=== PATIENT | female | born 1940 | race Caucasian/White ===

== ENCOUNTER → 2017-12-19 | Outpatient (CLI) | payer MEDICARE, BC ==
[~2017-12-19] MED LIST: ACE325 PO; ACYC-50 AD; ACYC-58 PO; ADV100/50 INH; ADV250/50 INH; ALP5 PO; AMI10 PO; AML5; AML5 PO; ASPI-1471 PO; ASPI81TA15 PO; ATOR10TA65 PO; ATOR40TA69 PO; AZIT-17 PO; BENZ200C15 PO; CALC-649 PO; CALC-864 PO; CARB1DRO14 OP; CARB25DR2 OP; CELE-1 PO; CYCL1DRO6 OD; CYCL1DRO6 OP; CYCOD OP; DIPH0.5D12 IM; DYA PO; ESC10 PO; EST; EST3 PO; ESTR-33 PO; ESTR0.5T16 PO; ESTR1VAG6 VG; ESTR2TAB26 PO; FIB FT; FLUT1DIS28 IH; GLUCOSAMINE 1,1 EACH PO; HYDR-2966 PO; HYDR115S2 PO; IBU200 PO; IBUP100T51 PO; IPRN ENA; LAN30PT PO; LANS15CA32 PO; LEV100 PO; LEV15R INH; LEVA15HF IH; LEVO-3 PO; LEVO100T95 PO; LIS20 PO; METO25TA23 PO; METO50TA PO; MU-V1TAB9 PO; MULT-1 PO; PAN40 PO; PANT40TA65 PO; PNEU0.5D3 IM; PRE50 PO; PRED20TA6 PO; PREG100C44 PO; PRO25 PO; RANI-324 PO; TRAM100T22 PO; TRIA-20 PO; TRIO80T TOP; XOPENEX INH; ZOLP-350 PO; [UNRECOGNIZED DRUG - CODE] IVP; [UNRECOGNIZED DRUG - CODE] PO; [UNRECOGNIZED DRUG - OTHER]
== END ==
LOC: LAB 10:47
PROVIDERS: ATTEND Emergency Medicine
DX: I10 Essential (primary) hypertension (principal); E03.9 Hypothyroidism, unspecified
CPT/HCPCS: 36415; 82310; 82374; 82435; 82565; 82947; 83735; 84132; 84295; 84443; 84520

== ENCOUNTER → 2018-01-02 | Outpatient (CLI) | payer MEDICARE, BC ==
--- NOTE | 2018-01-02 13:40 | RADIOLOGY IMAGING REPORT ---
FACILITY: [facility] PATIENT NAME: Kari Humphries : 1940 MR: [id number] V: [id number] EXAM DATE: ORDERING PHYSICIAN: JOEY HERRERA TECHNOLOGIST: Location: [facility] Patient: Kari Humphries : 1940 Visit/Account:[id number] Date of Sevice: 01/02/2018 DEXA Scan Clinical history: Postmenopausal estrogen deficiency. Comparison: DEXA scan from 12/24/2012. LUMBAR SPINE: The bone mineral density (BMD) measured from L1-L4 correlates with a Z-score of 4.3 and a T-score of 2.9 which is Normal as defined by the World Health Organization. The corresponding risk of fracture in the lumbar spine is Not increased compared with a young adult reference population. This value benson s increased by 16 % since the prior study. More than 5% change is considered significant. HIP: Bone mineral density (BMD) measured in the LEFT total hip region correlates with a Z-score 3.1 and a T-score of 1.4 which is normal as defined by the World Health Organization. The corresponding risk of fracture in the hip is Not i ncreased compared to a young adult reference population. This value has decrease by 2.7 % since the p rior study. More than 5% change is considered significant. T score left femoral neck 0.8 Bone mineral density (BMD) measured in the Femoral Neck region measures 1.143 g/cm?. IMPRESSION: 1. Lumbar spine: Normal. There has been 16% increase in the bone mineral density since the previous exam. 2. Left Total Hip: Normal. There has been 2.7% decrease in the bone mineral density since the previ ous exam. 3. Femoral Neck: Bone Mineral Density is 1.143 g/cm? The next DEXA scan of this patient should include the following sites: L1-L4 and the left hip. FRAX? WHO Fracture Risk Assessment Tool link: <http://www.shef.ac.uk/FRAX/tool.jsp?locationValue=9> PLEASE NOTE: 1) The World Health Organization defines low BMD as follows: T-score Normal > -1 Osteopenia < -1 and > -2.5 Osteoporosis < -2.5 without fractures Established osteoporosis < -2.5 with fractures 2) In general, you may wish to consider: Diagnosis Treatment Follow-up DEXA Normal BMD Prevention 2-3 years Osteopenia Prevention/therapy 1-2 years Osteoporosis Therapy Yearly 3) Fracture risk estimated from the T-score is more accurate for vertebral fractures (often spontane ous) than for hip fractures. Report Dictated By: Amy Reyna MD at 01/02/2018 1:34 PM Report E-Signed By: Amy Reyna MD at 01/02/2018 1:35 PM CESARN:MALISSA
--- NOTE | 2018-01-03 10:24 | RADIOLOGY IMAGING REPORT ---
FACILITY: [facility] PATIENT NAME: ORAL PARMAR : [id number] MR: [id number] V: [id number] EXAM DATE: ORDERING PHYSICIAN: JOEY HERRERA TECHNOLOGIST: Jeanne Urbina PROCEDURE:BILATERAL DIGITAL SCREENING MAMMOGRAM WITH CAD ASSISTED INTERPRETATION & 3D TOMOSYNTHESIS COMPARISON:Prior mammograms 12/01/15, 06/23/14, 05/05/13, 02/11/12, 02/07/11 INDICATIONS:Screening FINDINGS: Dense heterogeneous fibroglandular tissue is seen throughout the breasts. Most of the parenchymal pattern has remained stable allowing for difference in mammographic technique & patient positioning. Just infer to the mid nipple line Zone 2 on the Left MLO view however there is a focal area of increased density for which spot compression view is recommended. DIAGNOSTIC CATEGORY 0--INCOMPLETE: NEED ADDITIONAL IMAGING EVALUATION. RECOMMENDATIONS: ADDITIONAL MAMMOGRAPHIC VIEWS REQUIRED: LEFT BREAST. IMPRESSION: BIRADS 0: Incomplete Additional views Left breast recommended as described. Dictated by: Amy Reyna M.D. on 01/02/2018 at 16:27 Transcribed by: MIRANDA on 01/03/2018 at 8:00 Approved by: Amy Reyna M.D. on 01/03/2018 at 10:23 [facility]
== END ==
LOC: MAMO 01:06
PROVIDERS: ATTEND Emergency Medicine
DX: Z13.820 Encounter for screening for osteoporosis (principal); Z12.31 Encounter for screening mammogram for malignant neoplasm of breast; R92.8 Other abnormal and inconclusive findings on diagnostic imaging of breast; Z78.0 Asymptomatic menopausal state
CPT/HCPCS: 77063; 77067; 77080

== ENCOUNTER → 2018-01-07 | Outpatient (CLI) | payer MEDICARE, BC ==
--- NOTE | 2018-01-07 16:42 | RADIOLOGY IMAGING REPORT ---
FACILITY: [facility] - [place] [place] PATIENT NAME: ORAL PARMAR : [id number] MR: [id number] V: [id number] EXAM DATE: ORDERING PHYSICIAN: JOEY HERRERA TECHNOLOGIST: Julia Higuera PROCEDURE:LEFT DIGITAL DIAGNOSTIC MAMMOGRAM COMPARISON:01/02/2018, 12/01/2015 & 06/23/2014 INDICATIONS:FURTHER EVAL TECHNIQUE: Left full ML 2D & tomographic views & Left MLO spot compression 2D & 3D tomographic images were obtained. FINDINGS: Additional imaging of the Left breast demonstrates that the asymmetry previously identified in the central Left breast on the MLO view does not persist & likely represents overlapping normal fibroglandular tissue. There is no dominant mass or suspicious microcalcifications on the Left. Scattered microcalcifications in the Left breast appear to be stable. DIAGNOSTIC CATEGORY 2--BENIGN FINDING. RECOMMENDATIONS: ROUTINE MAMMOGRAM AND CLINICAL EVALUATION. IMPRESSION: BIRADS 2: Benign finding. Recommend the patient resume screening mammography in 1 yr. Dictated by: Gaston Zaidi M.D. on 01/07/2018 at 13:55 Transcribed by: ISAURO on 01/07/2018 at 14:08 Approved by: Gaston Zaidi M.D. on 01/07/2018 at 16:40 [facility]
== END ==
LOC: MAMO 02:13
PROVIDERS: ATTEND Emergency Medicine
DX: R92.2 Inconclusive mammogram (principal)
CPT/HCPCS: 77065

== ENCOUNTER 2018-03-10 08:15 | Outpatient (RCR) | payer MEDICARE, BC ==
--- NOTE | 2018-02-14 15:43 | PT INITIAL EVALUATION ---
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 She reports that the pain in her B LE's (knees to feet) has gotten worse the last 5 months. She reports that her B LE's feel like burning and swollen type pain, but she states that she does not feel like they are swollen. She reports that standing and walking makes her B LE's worse. She states that sitting, sleeping, bending, and lying make her B LE's feel better. She denies any night pain, bladder changes, gait changes, recent surgeries, or any recent accidents. She reports that it feels better when she is staying still and worse as the day progresses. She reports that when she sits with a better posture that her pain is worse. She denies any numbness and tingling or feeling like she has lost any strength in her B LE's. Pain location is B knees to feet, L3-5 spinous process and described as feels like burning and swollen feeling. Pain scale is 1 on a ten point pain scale. REHAB PROBLEM LIST: Increased Pain Decreased ROM Decreased Endurance Decreased Function Decreased ADL's PREVIOUS MEDICAL HISTORY: See EMR OCCUPATION: Retired OBJECTIVE: Posture: She demonstrated minimal forward head, minimal B rounded shoulders, minimal thoracic kyphosis, and decreased lumbar lordosis. ROM: Trunk AROM: flexion: NIL with muscular end feel. extension: minimal restriction with painful end feel. R/L sidegliding: minimal restriction with painful end feel. Palpation: TTP: B knees to feet, L3-5 spinous process Sensation: Intact from L2-S2 Special Tests: Repeated extension: pain during the test and worse following the test with reduced trunk AROM. Repeated flexion: stretch during the test and better following the test with improved trunk AROM. Mobility: Independent ASSESSMENT: Kari will benefit from skilled physical therapy addressing the listed impairments to improve function and QOL. Based on examination, her provisional classification appears to be an anterior derangement that responded well to flexion based principles. She is independent in her specific exercise. Short Term Goals 2 weeks: Pt will demonstrate centralized low back pain to improve function and QOL. 4 weeks: Pt will demonstrate abolished low back pain along with abolish radiating pain to improve function and QOL. 6 weeks: Pt will demonstrate abolished low back pain, return to prior level of function, and independent on her education to prevent reoccurrences in the future. Patient's Goals reduce B leg pain PLAN: Patient to be seen for Manual Therapy/STM/MET Strengthening/condition Range of Motion Spinal Stabilization Work Hardening/Cond Stretching Neuromuscular Re-ed Closed Chain Program Posture/Body mechanics Home Exercise Program Therapeutic Activities 2-3x/week for 6 Weeks If you have any questions, comments, or concerns about this report or plan, please contact me at . Thank you, Andrey Smith, PT, DPT MTDD
[~2018-03-10 08:15] MED LIST changes: -RANI-324 PO; +RANI-366 PO
--- NOTE | 2018-03-10 10:49 | PT PLAN OF CARE ---
Physician: Horacio House MD Patient is being seen: 1-2x/week Therapist: Andrey Smith, PT, DPT Medical Diagnosis: B Lower leg pain, likely neurological claudication from lumbar spine Treatment Diagnosis: same Date of Onset: 02/14/17 Date of Initial Evaluation: 02/14/18 Date patient was last seen: 03/10/18 Number of treatments: 6 Number of cancellations/No shows: 1 INTERVENTIONS: Manual Therapy/STM/MET Strengthening/condition Range of Motion Spinal Stabilization Work Hardening/Cond Stretching Neuromuscular Re-ed Closed Chain Program Posture/Body mechanics Home Exercise Program Therapeutic Activities GOALS: 2 weeks: Pt will demonstrate centralized low back pain to improve function and QOL. MET 4 weeks: Pt will demonstrate abolished low back pain along with abolish radiating pain to improve function and QOL. MET 6 weeks: Pt will demonstrate abolished low back pain, return to prior level of function, and independent on her education to prevent reoccurrences in the future. MET PATIENT'S GOAL: reduce B leg pain Not Met: unchanged Status of Patient's Goals: Met Patient Compliance: Good Prognosis: Good Reasons for continuing therapy: This is a discharge note for Kari Humphries. She reports that she is doing well. She reports that the back pain has resolved and denies any pain in her back during the last weekend. She reports that she continues to have B leg pain below the knees that has not gotten better or worse and continues to stay the same and continues to get worse with standing and better (or more tolerable) with compression. She demonstrated abolished low back pain and independence with her home exercise program moving forward. We performed an KASANDRA today and she was within the normal limits at 1.17 or 1.2. She is closer to the non-compressible arteries than PAD. Furthermore, it appears that her low back pain was not radiating down into her B LE's as her low back pain resolved and she continues to have the same levels of pain. As a result of her meeting her goals; however, we did not accomplish anything with her B LE pain since it was not linked to her lumbar spine, we will refer her back for more testing and discharge her from PT. Posture: She demonstrated minimal forward head, minimal B rounded shoulders, minimal thoracic kyphosis, and decreased lumbar lordosis. ROM: Trunk AROM: flexion: NIL with muscular end feel. extension: NIL with muscular end feel. R/L sidegliding: NIL with muscular end feel. Palpation: No longer TTP. Special Tests: Repeated extension: pain during the test and worse following the test with reduced trunk AROM. Repeated flexion: stretch during the test and worse following the test with decreased trunk AROM. R sidegliding: pain during the test and better following the test with increased trunk AROM. L sidegliding : pain during the test and worse following the test with decreased trunk AROM. Mobility: Independent If you have any questions, please contact me at [phone]. Thank you, Andrey Smith, PT, DPT MTDD
== END 2018-03-10 18:00 | disposition home or self-care (01) ==
LOC: PT 08:15
PROVIDERS: ATTEND Orthopaedic Surgery
DX: M54.5 Low back pain (principal); M79.604 Pain in right leg; M79.605 Pain in left leg
CPT/HCPCS: 97162

== ENCOUNTER → 2018-04-20 | Outpatient (REF) | payer MEDICARE, BC | LOC: ZZSTITCHES 14:20 | PROVIDERS: ATTEND Physician Assistant | DX: M79.672 Pain in left foot (principal); R06.9 Unspecified abnormalities of breathing | CPT/HCPCS: 84550 ==

== ENCOUNTER 2018-05-07 13:00 | Outpatient (RCR) | payer MEDICARE, BC ==
--- NOTE | 2018-04-30 08:04 | PT INITIAL EVALUATION ---
MEDICAL DIAGNOSIS: L wrist pain and inflammation, tendinitis TREATMENT DIAGNOSIS: Same DATE OF ONSET: 03/21/18 SUBJECTIVE: Kari Humphries presents to PT for L wrist pain, tendinitis with twisting water out of wet dish towels. She slammed her L wrist into a wall at home during a fall (06/29/17) and feels this started her L wrist pain. Pain location is L dorsal wrist and EDC tendon at the dorsal metacarpals and described as ache. Pain scale is 4 on a ten point pain scale. Pain is worse with twisting wet towels, gripping and better with resting wrist splint. REHAB PROBLEM LIST: Increased Pain, Decreased ROM, Strength, Function PREVIOUS MEDICAL HISTORY: Cervical fusion with hardware removal, thoracic surgery, laminectomy, thyroid disorder, neuropathy. OCCUPATION: Retired, drives, independent in all ADL's, does light housework only. OBJECTIVE: ROM: A/PROM L wrist extension 40/40, flexion 40/40, UD 0/10, RD 22/ 25 degrees. PROM at 3/4 fist with wrist flexion acutely painful at the dorsal wrist. L Elbow AROM WNL. Strength: EDC 3+/5, pain limited, flexors 4/5, pain limited. Palpation: Painful dorsal wrist carpals with hypomobile joints, anterior proximal row. Crackling in the EDC tenosynovial sheaths compartment 4, painful. Special Tests: Negative grind test at [facility], piano santana. ASSESSMENT: Kari Humphries presents with L wrist tendinitis and mild OA, hypomobile wrist affecting twisting motion and wrist strength. She had pain 2/10 with PROM wrist flexion (3/4 fist) after manual therapy and is started on gentle HEP. Short Term Goals/Patient's Goals 4 weeks: Kari wrings out wet towels with L wrist pain 2/10. 6 weeks: Pain free ADL's with L wrist. PLAN: Patient to be seen for Manual Therapy, Strengthening/condition, Ice/Heat , Range of Motion, Ultrasound, Stretching, Electrical Stim, Home Exercise Program 2x/Week for 6 Weeks Thank you for this referral. If you have any questions, comments, or concerns about this report or plan, please contact me at . [facility]
--- NOTE | 2018-05-16 15:35 | PT PLAN OF CARE ---
Physician: Dr. Horacio House Patient is being seen: 2x/week Therapist: Jaylyn Ro, PT Medical Diagnosis: L wrist pain and inflammation, tendinitis Treatment Diagnosis: Same Date of Onset: 03/21/18 Date of Initial Evaluation: 04/29/18 Date patient was last seen: 05/07/18 Number of treatments: 4 Number of cancellations/No shows: 1 INTERVENTIONS: ROM/stretching, Manual Therapy, HEP, E-stim GOALS/PATIENT'S GOAL: Not met due to hospitalization: 4 weeks: Kari wrings out wet towels with L wrist pain 11/30. 6 weeks: Pain free ADL's with L wrist. Patient Compliance: Excellent Prognosis: Excellent Reasons for discontinuing therapy: S: Kari has been re-admitted for UTI and pain control after her lumbar fusions. The current plan is home health upon discharge. Due to this, I need to close outpatient PT. Posture: O: As of : ROM: AROM L wrist extension 45, flexion 50 degrees. PROM at 3 /4 fist with wrist flexion was less painful at the dorsal wrist. Strength: NT Palpation: Improved carpal mobility, not full. No crackling in the EDC tenosynovial sheaths compartment 4, painful. A/P: Kari Humphries was improving her wrist tendinitis. If she needs further PT when she's discharged from home health, I'd be happy to work with her. I'll close her outpatient PT case for now. Thank you. KALYAN
== END 2018-05-07 18:00 | disposition home or self-care (01) ==
LOC: PT 13:00
PROVIDERS: ATTEND Orthopaedic Surgery
DX: M25.532 Pain in left wrist (principal); M67.834 Other specified disorders of tendon, left wrist; X50.3XXA Overexertion from repetitive movements, initial encounter; M43.22 Fusion of spine, cervical region; E07.9 Disorder of thyroid, unspecified; G62.9 Polyneuropathy, unspecified
CPT/HCPCS: 97110; 97140; 97162; G0283

== ENCOUNTER → 2018-05-07 | Outpatient (CLI) | payer MEDICARE, BC ==
[~2018-05-07] MED LIST changes: +FLUT16SP19 NS; +OXYGENHOME INH
--- NOTE | 2018-05-07 12:46 | RADIOLOGY IMAGING REPORT ---
FACILITY: [facility] PATIENT NAME: Kari Humphries : 1940 MR: [id number] V: [id number] EXAM DATE: ORDERING PHYSICIAN: JOEY HERRERA TECHNOLOGIST: Location: [facility] Patient: Kari Humphries : 1940 Visit/Account:[id number] Date of Sevice: 05/07/2018 Chest 2 views: HISTORY: Asthma, preop. COMPARISON: 12/27/2013 FINDINGS: Frontal and lateral chest: Cardiomediastinal silhouette is within normal limits. There is minimal prominence of the perihilar markings but significantly decreased in conspicuity compared to [facility] prior study. There may be minimal scarring in the lung bases. There is no infiltrate or pleural effusion. No pneumothorax. Pulmonary vasculature is normal. Atherosclerotic changes are present in the aorta. Postsurgical changes are present in the lower cervical spine. Mild degenerative changes present in t thoracic spine. IMPRESSION: 1. Mild prominence of the perihilar markings, this may be indicative of the patient's asthma. There is improvement compared to the prior study. 2. Basilar scarring. 3. No evidence of acute cardiopulmonary abnormality. Report Dictated By: Kait Rodriguez MD at 05/07/2018 12:37 PM Report E-Signed By: Kait Rodriguez MD at 05/07/2018 12:42 PM WSN:[id number]
== END ==
LOC: RAD 11:22
PROVIDERS: ATTEND Emergency Medicine
DX: Z01.818 Encounter for other preprocedural examination (principal); J45.909 Unspecified asthma, uncomplicated; R91.8 Other nonspecific abnormal finding of lung field
CPT/HCPCS: 71046

== ENCOUNTER → 2018-05-11 | Outpatient (CLI) | payer MEDICARE, BC ==
[~2018-05-11] MED LIST changes: +DIA5 PO; +DOCU240C84 PO; +LOR5/325 PO
== END ==
LOC: LAB 09:10
PROVIDERS: ATTEND Anesthesiology
DX: Z02.9 Encounter for administrative examinations, unspecified (principal)

== ENCOUNTER 2018-05-12 00:20 | Inpatient (IN) | payer MEDICARE, BC ==
[2018-04-18 08:57] LABS: PLATELET COUNT, AUTOMATED 240 K/uL (150-450)
--- NOTE | 2018-04-18 09:09 | EKG ---
FACILITY: [facility] - [place] PATIENT NAME: ORAL PARMAR : [id number] MR: [id number] V: [id number] EXAM DATE: ORDERING PHYSICIAN: JOSE MANUEL URRUTIA TECHNOLOGIST: BRITTANIE Marcelino Reason : PRE-OP Blood Pressure : / mmHG Vent. Rate : 066 BPM Atrial Rate : 066 BPM P-R Int : 208 ms QRS Dur : 090 ms QT Int : 402 ms P-R-T Axes : 058 071 074 degrees QTc Int : 421 ms Sinus rhythm No acute appearing findings When compared with ECG of 15-JAN-2013 17:54, No significant change was found Confirmed by KRISTEN SOARES ([id number]) on 04/18/2018 4:18:32 PM Referred By: LINA Confirmed By:KRISTEN SOARES
[2018-05-12] VITALS (11 sets, daily range): BP systolic 117–165; BP diastolic 64–98
[~2018-05-12] VITALS: Ht 174 cm; Wt 74.6 kg
[~2018-05-12 00:20] MED LIST changes: -DIA5 PO; -DOCU240C84 PO; -LOR5/325 PO
[2018-05-12] MEDS ORDERED: SUGAMMADEX SOD 200 MG/2 ML SDV ONE (09:39)
[2018-05-12] MEDS ORDERED: PROPOFOL EMUL(*) 10MG/ML 20 ML 20 ML ONE (09:39)
[2018-05-12] MEDS ORDERED: DEXAMETHASONE SOD PHOS 10MG/ML ONE (09:39)
[2018-05-12] MEDS ORDERED: LIDOCAINE MPF 1% 5 ML VIAL ONE (09:39)
[2018-05-12] MEDS ORDERED: ONDANSETRON 4 MG/2 ML VIAL ONE (09:39)
[2018-05-12] MEDS ORDERED: fentaNYL CITR 250 MCG/5 ML AMP ONE (09:49)
[2018-05-12] MEDS ORDERED: PROPOFOL EMUL(*) 10MG/ML 20 ML 60 ML ONE ×2 (09:51→13:03)
[2018-05-12] MEDS ORDERED: ACETAMINOPHEN 500 MG TAB PO ONE (10:30)
[2018-05-12] MEDS ORDERED: ceFAZolin(*) 2GM/D5W 50ML 50 ML IVPB ONE (10:30)
[2018-05-12] MEDS ORDERED: LIDOCAINE/SOD BICARB 8.4% SYR ID ONE (10:30)
[2018-05-12] MEDS ORDERED: FAMOTIDINE 20 MG TAB PO ONE (10:30)
[2018-05-12] MEDS ORDERED: NORMOSOL R SOLN(*) 1000 ML BAG 1,000 ML IV PRN (10:30)
[2018-05-12] MEDS ORDERED: MIDAZOLAM 2 MG/2 ML VIAL IVP PRN (10:30)
[2018-05-12] MEDS ORDERED: THROMBIN (BOVINE) 20,000 UNIT VIAL ONE (10:33)
[2018-05-12] MEDS ORDERED: ROCURONIUM BROM 10 MG/ML 10 ML ONE (11:26)
[2018-05-12] MEDS ORDERED: NS 0.9% IRRIGATION 1000ML PLCT IR ONE (12:06)
[2018-05-12] MEDS ORDERED: fentaNYL CITR 100 MCG/2 ML AMP ONE ×2 (14:07→15:48)
[2018-05-12] MEDS ORDERED: DIAZEPAM 5 MG TAB PO PRN (15:25)
[2018-05-12] MEDS ORDERED: HYDROmorphone HCL 2 MG/ML SDV IVP PRN (15:25)
[2018-05-12] MEDS ORDERED: ACETAMINOPHEN(*)1000 MG/100 ML 100 ML IVPB PRN (15:25)
[2018-05-12] MEDS ORDERED: oxyCODONE HCL 5 MG CAP PO PRN (15:25)
[2018-05-12] MEDS ORDERED: FLUSH 10 ML SYR IVP PRN (15:25)
[2018-05-12] MEDS ORDERED: ACETAMINOPHEN 500 MG TAB PO PRN (15:25)
[2018-05-12] MEDS ORDERED: ONDANSETRON 4 MG/2 ML VIAL IVP PRN (15:25)
[2018-05-12] MEDS ORDERED: MAGNESIUM HYDROXIDE* 30ML UDCP PO PRN (15:25)
[2018-05-12] MEDS ORDERED: BENZOCAINE/MENTHOL 1 EACH LOZG PO PRN (15:25)
[2018-05-12] MEDS ORDERED: LR(*) 1000 ML BAG 1,000 ML IV PRN (15:25)
[2018-05-12] MEDS ORDERED: BISACODYL 10 MG SUPP PR PRN (15:25)
[2018-05-12] MEDS ORDERED: diphenhydrAMINE 25 MG CAP PO PRN (15:25)
--- NOTE | 2018-05-12 16:33 | RADIOLOGY IMAGING REPORT ---
FACILITY: [facility] PATIENT NAME: Kari Humphries : 1940 MR: [id number] V: [id number] EXAM DATE: ORDERING PHYSICIAN: ABRAHAM MILLS TECHNOLOGIST: Location: [facility] Patient: Kari Humphries : 1940 Visit/Account:[id number] Date of Sevice: 05/12/2018 Exam type: LUMBAR SPINE 1 VIEW History: LUMBAR DISC HERNIATION L3-S1, FUSION Comparison: None. Findings: Four intraoperative views of the lumbar spine were submitted for interpretation. Images demonstrate postsurgical changes from posterior lumbar interbody fusion at L3, L4 and L5. On the initial image t here was a grade 1 anterior listhesis of L4 with respect L5. The degree of listhesis could not be me asured on these portable intraoperative C-arm views however on the final images there was a marked im provement with only minimal anterior listhesis of L4 with respect L5. The continuous cumulative fluo roscopy dose was [id number] mGray per meter squared. The fluoroscopy time was 14.4 seconds IMPRESSION: 1. As above Report Dictated By: mAy Reyna MD at 05/12/2018 4:25 PM Report E-Signed By: Amy Reyna MD at 05/12/2018 4:29 PM WSN:[email or web address]
--- NOTE | 2018-05-12 17:31 | Hospitalist Progress Note ---
Subjective Progress Notes Subjective Patient seen post-op. She denies any CP/SOB/N/V. Reviewed PMHx and medications. Physical Exam Vital Signs Date Time Temp Pulse Resp B/P (MAP) Pulse Ox O2 Delivery O2 Flow Rate FiO2 05/12/18 16:40 97.6 15 157/82 (107) 97 Nasal Cannula 1.0 05/12/18 16:35 66 Intake and Output 05/13/18 07:00 Intake Total 1700 ml Balance 1700 ml Intake IV Total 1700 ml General Appearance: Alert, Awake Cardiovascular: Regular Rate and Rhythm (with soft systolic murmur) Respiratory: Clear to Auscultation GI: Soft and Non-Tender Assessment and Plan Problems: (1) Hypertension Status: Chronic Assessment & Plan: Will monitor her BPs. Resume her metoprolol, Dyazide with parameters. (2) Hypothyroidism Status: Chronic Assessment & Plan: Continue replacement therapy with L-thyroxine. (3) GERD (gastroesophageal reflux disease) Status: Chronic Assessment & Plan: Continue PPI therapy. KRISTEN SOARES MD May 12, 2018 17:31
[2018-05-12] MEDS: ceFAZolin(*) 2GM/D5W 50ML 50 ML IVPB SCH (18:02)
[2018-05-12] MEDS: PREGABALIN 50 MG CAP PO SCH (20:25)
[2018-05-12] MEDS: DOCUSATE SODIUM 100 MG CAP PO SCH (20:25)
[2018-05-12] MEDS: APAP/HYDROCODONE 325/5 TAB PO PRN (20:26)
--- NOTE | 2018-05-12 23:55 | RADIOLOGY IMAGING REPORT ---
FACILITY: [facility] [place] PATIENT NAME: Kari Humphries : 1940 MR: [id number] V: [id number] EXAM DATE: ORDERING PHYSICIAN: ABRAHAM MILLS TECHNOLOGIST: Location: [facility] Patient: Kari Humphries : 1940 Visit/Account:[id number] Date of Sevice: 05/12/2018 Fluoroscopy in OR: Indication: Lumbar fusion surgery. Technique: 5 images were submitted. Fluoroscopy time was less than 1 hour. Comparison: None. Findings: The images document placement of posterior fusion hardware in the L3, L4, and L5 vertebral bodies and posterior elements. The hardware and skeletal structures appear to be in satisfactory alig nment. Refer to the operative report for full details. Impression: As above. Report Dictated By: Luis Enrique Bee MD at 05/12/2018 11:46 PM Report E-Signed By: Luis Enrique Bee MD at 05/12/2018 11:52 PM WSN:[id number]
[2018-05-13] MEDS: APAP/HYDROCODONE 325/5 TAB PO PRN ×2 (01:28→08:35)
[2018-05-13] MEDS: ceFAZolin(*) 2GM/D5W 50ML 50 ML IVPB SCH ×2 (02:37→10:24)
[2018-05-13 03:18] VITALS: BP 107/50
[2018-05-13] MEDS ORDERED: LEVOTHYROXINE SOD 0.1 MG TAB PO SCH (06:00)
[2018-05-13 06:06] LABS: PLATELET COUNT, AUTOMATED 203 K/uL (150-450)
[2018-05-13 08:06] VITALS: BP 114/51
[2018-05-13] MEDS: PREGABALIN 50 MG CAP PO SCH (08:36)
[2018-05-13] MEDS: DOCUSATE SODIUM 100 MG CAP PO SCH (08:36)
[2018-05-13] MEDS ORDERED: ATORVASTATIN 40 MG TAB PO SCH (09:00)
[2018-05-13] MEDS ORDERED: METOPROLOL SUCC XL 25 MG TABCR PO SCH (09:00)
[2018-05-13] MEDS ORDERED: TRIAMTERENE/HCTZ 75-50MG TAB PO SCH (09:00)
[2018-05-13] MEDS ORDERED: LANSOPRAZOLE 15 MG CAPCR PO SCH (09:00)
[2018-05-13 09:49] VITALS: Ht 174 cm; Wt 74.6 kg
--- NOTE | 2018-05-13 10:01 | Hospitalist Progress Note ---
Subjective Progress Notes Subjective She was admitted after lumbar surgery. She had no acute events overnight. Patient Complains of: Cardiovascular: No: Chest Pain Respiratory: No: Shortness of Breath Physical Exam Vital Signs Date Time Temp Pulse Resp B/P (MAP) Pulse Ox O2 Delivery O2 Flow Rate FiO2 05/13/18 08:18 93 Room Air 05/13/18 08:06 98.8 70 18 114/51 (72) 05/13/18 03:18 1.0 Intake and Output 05/14/18 07:00 Intake Total 0 ml Balance 0 ml Intake Oral 0 ml # Voids 1 General Appearance: Alert, Awake, No Acute Distress Neuro: No Gross deficits Cardiovascular: Regular Rate and Rhythm Respiratory: No Respiratory Distress, Clear to Auscultation Extremities: No Edema Psych: Alert & Oriented X3, Appropriate Mood & Affect Result Diagram: 05/13/18 0507 05/13/18 0507 Assessment and Plan Problems: (1) Hypertension Status: Chronic Assessment & Plan: She is on chronic treatment with metoprolol and Dyazide. (2) Hypothyroidism Status: Chronic Assessment & Plan: Continue replacement therapy with L-thyroxine. (3) GERD (gastroesophageal reflux disease) Status: Chronic Assessment & Plan: Continue PPI therapy. Exam Sepsis Risk: No Definite Risk Problem Qualifiers (1) Hypertension: Hypertension type: essential hypertension Qualified Codes: I10 - Essential ( primary) hypertension NORBERTO AGUERO May 13, 2018 10:01
[2018-05-13] MEDS ORDERED: LOR5/325 PO (10:21)
[2018-05-13] MEDS ORDERED: DIA5 PO (10:21)
[2018-05-13] MEDS ORDERED: DOCU240C84 PO (10:22)
--- NOTE | 2018-05-19 15:41 | OPERATIVE REPORT 1 ---
EVENT DATE: May 12, 2018 SURGEON: Srinivas Ventura MD ANESTHESIOLOGIST: Perry Abbott MD ANESTHESIA: General endotracheal. TELEGRAPH REPEATER TECHNICIAN: Vinh Sood PA-C PREOPERATIVE DIAGNOSIS Lumbar stenosis with neurogenic claudication and radiculopathy. POSTOPERATIVE DIAGNOSIS Lumbar stenosis with neurogenic claudication and radiculopathy. PROCEDURE PERFORMED L3-S1 laminectomy and L3-L5 posterolateral instrumented fusion. IV FLUIDS 2100 mL. ESTIMATED BLOOD LOSS 150 mL. IMPLANTS 6.5 mm x 45 mm pedicle screws from [employer] x six, 45 mm x 5.5 mm connecting rods from [employer] x 2 and locking caps from [employer] x two and locking caps from [employer] x six. SPECIMENS None. DRAINS None. COMPLICATIONS None. DISPOSITION Post anesthesia care unit. INDICATION FOR SURGERY Ms. Humphries is a 77-year-old female who presented to me with a chief complaint of bilateral lower extremity pain, numbness and tingling. She noted a significant decrease in walking tolerance secondary to the pain in her lower extremities as well as heaviness and weakness in the legs. Her physical examination was significant for slightly decreased range of motion, particularly in extension, but she had a negative straight leg raising test bilaterally, and strength and sensation was intact. Imaging studies showed multilevel degenerative disk disease with an anterolisthesis of L4 on L5 and a retrolisthesis of L3 on L4. There was significant stenosis at L3-4 and L4-5 with [id number] stenosis at L2-L3 and L5-S1. Secondary to her ongoing symptoms and failure to improve with nonsurgical care, Ms. Humphries was offered and elected to undergo L2 to S1 laminectomy and L3 to L5 posterolateral instrumented fusion. Prior to surgery, I explained in detail to the patient the possible risks of surgery. This included bleeding, infection, damage to surrounding structures, nerve root injury, spinal fluid leak, meningitis, persistent and/or worsening pain, need for further surgery, , blindness, sexual dysfunction, autonomic nervous system dysfunction and other unforeseen medical and surgical complications. An understanding that spinal surgery is more predictive at improving extremity discomfort than axial spine pain was stressed. DESCRIPTION OF PROCEDURE On the day of surgery, the patient was met in the preoperative hold area, and all questions were answered. The operative site was identified and marked by myself. The patient was brought in good condition to the operating room, and after succumbing to anesthesia, was placed in the prone position on a Tae table. All bony protuberances and soft tissues were well padded in the standard fashion. Care was taken to maintain appropriate perfusion pressures during anesthesia. Preoperative antibiotics were administered according to the appropriate timing schedule. At the conclusion of the procedure, sponge and needle count were correct x two. A final time out was undertaken by members of the operating team to confirm correct patient, correct levels and correct surgery. The patient was then prepped and draped in the standard sterile orthopedic fashion. A midline incision was made over the intended surgical levels, and sharp dissection was carried out down to the posterior elements. Soft tissues were elevated off the posterior elements in a subperiosteal manner, and a lateral radiograph was obtained to confirm correct spinal levels. A self-retaining retractor was placed, and the spinous processes of L3, L4 and L5 as well as the inferior aspect of the spinous processes of L2 were removed with a combination of the Leksell rongeur and the [employer] bone cutter. A combination of the Leksell rongeur and a high-speed gabbie was used to thin the lamina in the midline, and the canal was then entered using an angled curette to undermine the superior insertion of the ligamentum flavum on the undersurface of the L5 lamina. A combination of #3 and #4 Kerrison punches were then used to perform a midline decompression. A [place] elevator was used to separate any dural adhesions from surrounding bone or soft tissue prior to use of the Kerrison punch. Once the midline decompression was completed, bilateral lateral recess decompressions were performed at L2-L3, L3-L4, L4-L5 and L5-S1. A Meche elevator and Kaye probe were then used to confirm adequate decompression of the neural elements in the lateral recesses as well as out the foramina. The Bovie was used to dissect out to the tips of the transverse processes of L3 , L4 and L5. The starting points for pedicle screws were identified at approximately the intersection of the pars interarticularis, the midpoint of the transverse process and the lateral aspect of the superior articular process at L3, L4 and L5 bilaterally. A high-speed gabbie was used to decorticate the starting point, and then a Lenke type probe was advanced against resistance through the pedicle and into the vertebral body. A ball tip feeler was used to confirm absence of pedicle wall breaching by palpating superiorly, inferiorly, medially, laterally, and distally to confirm integrity of the path for the pedicle screws. 6.5 mm x 45 mm screws were selected and placed bilaterally at L3, L4 and L5. We then selected our connecting rods and placed those in the tulips of the pedicle screws bilaterally. A reduction maneuver was then performed, reducing the L4 vertebrae to the tal. The locking caps were then placed in all six tulips and tightened, and then final tightened using the torque-limiting device. The entire wound was then irrigated with copious sterile saline solution, and a high-speed gabbie was used to decorticate the transverse processes of L3, L4 and L5 bilaterally. A combination of the harvested local bone and some demineralized bone matrix putty was then packed in the lateral gutters over the decorticated transverse processes. A radiograph was obtained that showed excellent reduction of the spondylolisthesis and appropriate placement of all instrumentation. The wound was then closed in layers using interrupted sutures for the deep fascia, inverted interrupted sutures for the subcutaneous tissue and then a running subcuticular skin stitch. Sponge and needle counts were correct x two. POSTOPERATIVE CARE PLAN The patient will remain in the hospital until she meets discharge criteria. She will then be discharged home with instructions to follow up with me in two weeks time. KALYAN
== END 2018-05-13 14:45 | disposition home or self-care (01) | DRG 460 ==
LOC: OR 00:20 → MED 16:35
PROVIDERS: ADMIT Orthopaedic Surgery; ATTEND Orthopaedic Surgery
PROC: 01NB0ZZ Release Lumbar Nerve, Open Approach (ICD-10-PCS; 2018-05-12)
PROC: 0SG0071 Fusion of Lumbar Vertebral Joint with Autologous Tissue Substitute, Posterior Approach, Posterior Column, Open Approach (ICD-10-PCS; principal; 2018-05-12 11:25)
DX: M48.062 Spinal stenosis, lumbar region with neurogenic claudication (principal); M43.16 Spondylolisthesis, lumbar region; M51.16 Intervertebral disc disorders with radiculopathy, lumbar region; M48.07 Spinal stenosis, lumbosacral region; G47.33 Obstructive sleep apnea (adult) (pediatric); G62.9 Polyneuropathy, unspecified; J45.909 Unspecified asthma, uncomplicated; K21.9 Gastro-esophageal reflux disease without esophagitis; I10 Essential (primary) hypertension; E78.5 Hyperlipidemia, unspecified; F41.8 Other specified anxiety disorders; E03.9 Hypothyroidism, unspecified; Z98.1 Arthrodesis status; Z90.710 Acquired absence of both cervix and uterus
CPT/HCPCS: 36415; 72020; 76000; 82040; 82247; 82310; 82374; 82435; 82565; 82947; 84075; 84132; 84155; 84295; 84443; 84450; 84460; 84520; 85025; 86850; 86900; 86901; 93005; 97161; C1713; J0690; J1100; J2001; J2250; J2405; J2704; J3010

== ENCOUNTER 2018-05-14 13:30 | Emergency (ER) | payer MEDICARE, BC ==
[2018-05-13 09:49] VITALS: BMI 24.6
[~2018-05-14 13:30] MED LIST changes: +DIA5 PO; +DOCU240C84 PO; +LOR5/325 PO
== END 2018-05-14 14:03 | disposition left against medical advice (07) ==
LOC: CANPREER → ER 13:31
DX: Z02.9 Encounter for administrative examinations, unspecified (principal)

== ENCOUNTER 2018-05-15 03:36 | Observation (INO) | payer MEDICARE, BC ==
[~2018-05-15] VITALS: Ht 165.1 cm; Wt 73.9 kg
[~2018-05-15 03:36] MED LIST changes: -CYCL10TA29 PO; -LIDO700A19 TP
[2018-05-15 04:28] LABS: PLATELET COUNT, AUTOMATED 190 K/uL (150-450)
[2018-05-15] MEDS ORDERED: cefTRIAXone 1 GM VIAL IVP ONE (04:35)
[2018-05-15] MEDS ORDERED: NS(*) 0.9% 1000 ML BAG 1,000 ML IV ONE (04:35)
--- NOTE | 2018-05-15 04:37 | ER Report ---
History and Physical Time Seen By MD: 04:32 Hx. of Stated Complaint: back surgery 3 days ago. currently has rt leg weakness, difficulty walking HPI/ROS CHIEF COMPLAINT: Right lower extremity weakness status post lumbar spine laminectomy 3 days prior HISTORY OF PRESENT ILLNESS: Patient is a 77-year-old female here with complaints of right lower extremity weakness in the setting of a recent lumbar laminectomy with Dr. Ventura. Patient reports that initially when she left the hospital she was able to ambulate without issue however the last day and a half she reports that her right lower extremity has been "giving out on her". Patient has intact sensation and neurovascular exam is intact however is decreased on the right side. Deep tendon reflexes are intact. Patient is afebrile but complains of increasing lower back pain. Patient denies trauma to the back, headache, blurred vision, chest pain, shortness of breath, nausea, vomiting. REVIEW OF SYSTEMS: Constitutional: No fever, no chills. Eyes: No discharge. ENT: No sore throat. Cardiovascular: No chest pain, no palpitations. Respiratory: No cough, no shortness of breath. Gastrointestinal: No abdominal pain, no vomiting. Genitourinary: No hematuria. Musculoskeletal: + midline lower back pain, + RLE mild motor weakness- sensorineural exam intact Skin: No rashes. Neurological: No headache. Allergies: Coded Allergies: Tetanus Vaccines and Toxoid (Verified Allergy, Mild, TETANUS(HORSE SERUM) , 05/15/18) codeine (Verified Allergy, Mild, 05/15/18) sulfamethoxazole (Verified Allergy, Mild, 05/15/18) trimethoprim (Verified Allergy, Mild, 05/15/18) albuterol (Verified Adverse Reaction, Mild, CAUSED HIGH BP AND HR, 05/15/18 ) amitriptyline (Verified Adverse Reaction, Mild, MULTIPLE SIDE EFFECTS, ) droperidol (Verified Adverse Reaction, Mild, NAUSEA, 05/15/18) gabapentin (Verified Adverse Reaction, Mild, CAUSES ANGER, MOOD SWINGS, ) morphine (Verified Adverse Reaction, Mild, NAUSEA, 05/15/18) trazodone (Verified Adverse Reaction, Mild, ANGER, MOOD SWINGS, 05/15/18) NSAIDS (Non-Steroidal Anti-Inflamma (Verified Adverse Reaction, Unknown, RECOMMENDED NOT TO TAKE R/T KIDNEY FUNCTION, 05/15/18) lisinopril (Verified Adverse Reaction, Unknown, RECOMMENDED NOT TO TAKE R/ T KIDNEY FUNCTIONS, 05/15/18) Uncoded Allergies: Fragrence (Adverse Reaction, Mild, "BREAK OUT" , 05/05/18) Home Meds Active Scripts Fluticasone/Salmeterol (ADVAIR 250-50 DISKUS) 1 Each Disk.w.dev, 1 EACH IH BID, #3 INHALER 4 Refills Prov:JOEY HERRERA MD 12/19/17 Levothyroxine Sodium (LEVOTHYROXINE SODIUM) 100 Mcg Tablet, 1 TAB PO QDAY, #90 TAB 3 Refills Prov:JOEY HERRERA MD 12/19/17 Triamterene/Hydrochlorothiazid (TRIAMTERENE-HCTZ 37.5-25 MG TB) 1 Each Tablet, 0.5 TAB PO QAM, #45 TAB 3 Refills Prov:JOEY HERRERA MD 12/19/17 Atorvastatin Calcium (ATORVASTATIN CALCIUM) 40 Mg Tablet, 1 TAB PO QDAY, #90 TAB 3 Refills Prov:JOEY HERRERA MD 12/19/17 Metoprolol Succinate (METOPROLOL SUCCINATE) 25 Mg Tab.er.24h, 1 TAB PO QDAY, # 90 TAB 3 Refills Prov:JOEY HERRERA MD 12/19/17 Acyclovir (ACYCLOVIR) 400 Mg Tablet, 1 TAB AD TID Y for prn, #90 TAB 3 Refills Prov:JOEY HERRERA MD 12/19/17 Reported Medications Docusate Calcium (SURFAK) 240 Mg Capsule, 240 MG PO QDAY, #9 CAPSULE 05/13/18 Diazepam (VALIUM) 5 Mg Tablet, 5 MG PO Q8H for Muscle Relaxant, #16 TAB 05/13/18 Hydrocodone Bit/Acetaminophen (HYDROCODON-ACETAMINOPHEN 5-325) 1 Each Tablet, 1- 2 EACH PO Q6H for PAIN, #36 TAB 05/13/18 Fluticasone Prop 50 Mcg Ns (FLONASE 50 MCG NS) 16 Gm Jeffrey.susp, 1 SPRAY NS PRN , BOT 05/05/18 Oxygen (OXYGEN) Inha, 2 L INH QHS, L 05/05/18 Lansoprazole (LANSOPRAZOLE) 15 Mg Capsule.dr, 15 MG PO QDAY 12/17/16 Aspirin (ASPIR 81) 81 Mg Tablet.dr, 81 MG PO QDAY, TAB 12/17/16 Carboxymethylcellulose Sodium (REFRESH PLUS) Unknown Strength Droperette, 1 EACH OP BID 12/17/16 Pregabalin (LYRICA) 100 Mg Capsule, 1 CAP PO BID, CAPSULE 12/14/15 Calcium Carb & Cit/Vitamin D3 (CITRACAL + D ER TABLET) 1 Each Tablet.er, 1 EACH PO 12/27/13 Discontinued Reported Medications Mu-Vits-Min Th/Lycopene/Lutein (CENTRUM SILVER TABLET) 1 Each Tablet, 1 EACH PO QDAY 04/02/12 Hx Smoking: Yes (SMOKED FOR 2 YEARS LONG TIME AGO) Smoking Status: Former Smoker Exposure to Second Hand Smoke?: No Hx Substance Use Disorder: No Hx Alcohol Use: No Constitutional Vital Sign - Last 24 Hours 05/15/18 05/15/18 05/15/18 05/15/18 03:41 03:43 03:51 04:06 Temp 98.0 Pulse 72 75 ??? Resp 16 B/P (MAP) 130/68 (88) 130/68 Pulse Ox 89 89 O2 Delivery Room Air 05/15/18 05/15/18 05/15/18 05/15/18 04:21 04:36 04:43 04:51 Pulse ? 76 B/P (MAP) 129/57 (81) Pulse Ox 86 05/15/18 05/15/18 05/15/18 05/15/18 05:00 05:06 05:21 05:26 Pulse 70 68 70 B/P (MAP) 127/57 (80) Pulse Ox 84 95 95 05/15/18 05/15/18 05/15/18 05:30 05:41 05:56 Pulse 64 69 B/P (MAP) 122/55 (77) Pulse Ox 96 95 Physical Exam General Appearance: The patient is alert, has no immediate need for airway protection and no signs of toxicity. No acute distress Eyes: Pupils equal and round no pallor or injection. ENT, Mouth: Mucous membranes are moist. Respiratory: There are no retractions, lungs are clear to auscultation. Cardiovascular: Regular rate and rhythm. Gastrointestinal: Abdomen is soft and non tender, no masses, bowel sounds normal. Neurological: Neurovascular exam intact in the lower extremities, mild motor weakness is noted in the right lower extremity limited by pain Skin: Warm and dry, no rashes. Musculoskeletal: + Mid line lower back pain Extremities are nontender, nonswollen and have full range of motion. DIFFERENTIAL DIAGNOSIS: After history and physical exam differential diagnosis was considered for postoperative pain, epidural hematoma, nerve impingement Medical Decision Making Data Points Result Diagram: 05/16/18 0527 05/16/18 0527 Laboratory Hematology Test 05/15/18 04:10 05/15/18 04:18 Urine WBC Clumps Few /HPF Urine Transitional Epithelial Cells Many /LPF (NONE-FEW) Urine Hyaline Casts Few /LPF (NONE-FEW) Erythrocyte Sedimentation Rate 54 mm/HOUR (0-30) C-Reactive Protein 17.8 mg/dl (<1.0) Chemistry Test 05/15/18 04:10 05/15/18 04:18 Urine WBC Clumps Few /HPF Urine Transitional Epithelial Cells Many /LPF (NONE-FEW) Urine Hyaline Casts Few /LPF (NONE-FEW) Erythrocyte Sedimentation Rate 54 mm/HOUR (0-30) C-Reactive Protein 17.8 mg/dl (<1.0) Urinalysis Test 05/15/18 04:10 Urine WBC Clumps Few /HPF Urine Transitional Epithelial Cells Many /LPF (NONE-FEW) Urine Hyaline Casts Few /LPF (NONE-FEW) ED Course/Re-evaluation ED Course Patient is a 77-year-old female here with complaints of right lower extremity weakness in the setting of a recent lumbar laminectomy [address] Ventura. Patient reports that initially she was doing well with ambulation however the last day and a half she reports lower extremity weakness with her leg "giving out on her". Patient is afebrile, hemodynamically stable. She initially came in due to profound weakness, back pain. Patient denies urinary or bowel incontinence, urinary retention, saddle anesthesia. Labs were remarkable for a urinary tract infection which is likely contributing to her current weakness and symptoms. Patient reports that she is too weak to safely go home at this time and the also reports that he does not feel comfortable bringing her home since he has difficulty lifting her. I discussed the patient with Dr. Ventura, her orthopedic surgeon regarding her procedure and disposition. He recommended against MRI imaging due to the nature of the procedure and proximity to the surgery. I discussed the patient with Dr. Sydnee fu who accepted the patient to the hospitalist service. The patient was treated with ceftriaxone, fluid bolus. Patient remained stable while under my care. Decision to Disposition Date: May 15, 2018 Decision to Disposition Time: 05:53 Depart Departure Latest Vital Signs Vital Signs Date Time Temp Pulse Resp B/P (MAP) Pulse Ox O2 Delivery O2 Flow Rate FiO2 05/15/18 05:56 69 95 05/15/18 05:30 122/55 (77) 05/15/18 03:43 98.0 16 Room Air Impression: Primary Impression: Urinary tract infection Additional Impressions: Weakness Post-op pain Condition: Improved Disposition: Admitted from ER Referrals: JOEY HERRERA MD (PCP) Problem Qualifiers RADHA BELTRAN DO May 15, 2018 04:37
[2018-05-15] MEDS ORDERED: ONDANSETRON 4 MG/2 ML VIAL IVP PRN (06:40)
[2018-05-15] MEDS ORDERED: INFLUENZA VIRUS VAC 0.5 ML SYR IM ONLY ONE (06:40)
[2018-05-15] MEDS ORDERED: FLUSH 10 ML SYR IVP PRN (06:40)
[2018-05-15] MEDS ORDERED: ACETAMINOPHEN 325 MG TAB PO PRN (06:40)
[2018-05-15 06:41] VITALS: BP 120/62
--- NOTE | 2018-05-15 08:15 | History & Physical ---
History of Present Illness Chief Complaint R leg weakness, lumbar pain History of Present Illness 77F presented to ER with increased weakness in R leg. Lumbar fusion with Dr Ventura on 05.12 and had gone home, noted increasing difficulty walking and her was unable to help her get up and ambulate to bathroom. Dr Ventura was consulted by ER who recommended against further imaging at this time and believes this to be normal post operative weakness. Reports pain over incision site but denies any radiation of pain. In ER noted to have dirty UA which appears to not be clean catch. Pt denies any symptoms of frequency, dysuria, incontinence. History Problems: (1) Hypercholesteremia Status: Chronic (2) Hypertension Status: Chronic (3) Hypothyroidism Status: Chronic (4) Chronic kidney disease (CKD), stage III (moderate) Status: Chronic Other Past Medical Hx asthma Home Meds Active Scripts Fluticasone/Salmeterol (ADVAIR 250-50 DISKUS) 1 Each Disk.w.dev, 1 EACH IH BID, #3 INHALER 4 Refills Prov:JOEY HERRERA MD 12/19/17 Levothyroxine Sodium (LEVOTHYROXINE SODIUM) 100 Mcg Tablet, 1 TAB PO QDAY, #90 TAB 3 Refills Prov:JOEY HERRERA MD 12/19/17 Triamterene/Hydrochlorothiazid (TRIAMTERENE-HCTZ 37.5-25 MG TB) 1 Each Tablet, 0.5 TAB PO QAM, #45 TAB 3 Refills Prov:JOEY HERRERA MD 12/19/17 Atorvastatin Calcium (ATORVASTATIN CALCIUM) 40 Mg Tablet, 1 TAB PO QDAY, #90 TAB 3 Refills Prov:JOEY HERRERA MD 12/19/17 Metoprolol Succinate (METOPROLOL SUCCINATE) 25 Mg Tab.er.24h, 1 TAB PO QDAY, # 90 TAB 3 Refills Prov:JOEY HERRERA MD 12/19/17 Acyclovir (ACYCLOVIR) 400 Mg Tablet, 1 TAB AD TID Y for prn, #90 TAB 3 Refills Prov:JOEY HERRERA MD 12/19/17 Reported Medications Docusate Calcium (SURFAK) 240 Mg Capsule, 240 MG PO QDAY, #9 CAPSULE 05/13/18 Diazepam (VALIUM) 5 Mg Tablet, 5 MG PO Q8H for Muscle Relaxant, #16 TAB 05/13/18 Hydrocodone Bit/Acetaminophen (HYDROCODON-ACETAMINOPHEN 5-325) 1 Each Tablet, 1- 2 EACH PO Q6H for PAIN, #36 TAB 05/13/18 Fluticasone Prop 50 Mcg Ns (FLONASE 50 MCG NS) 16 Gm Hamilton.susp, 1 SPRAY NS PRN , BOT 05/05/18 Oxygen (OXYGEN) Inha, 2 L INH QHS, L 05/05/18 Lansoprazole (LANSOPRAZOLE) 15 Mg Capsule.dr, 15 MG PO QDAY 12/17/16 Aspirin (ASPIR 81) 81 Mg Tablet.dr, 81 MG PO QDAY, TAB 12/17/16 Carboxymethylcellulose Sodium (REFRESH PLUS) Unknown Strength Droperette, 1 EACH OP BID 12/17/16 Pregabalin (LYRICA) 100 Mg Capsule, 1 CAP PO BID, CAPSULE 12/14/15 Calcium Carb & Cit/Vitamin D3 (CITRACAL + D ER TABLET) 1 Each Tablet.er, 1 EACH PO 12/27/13 Mu-Vits-Min Th/Lycopene/Lutein (CENTRUM SILVER TABLET) 1 Each Tablet, 1 EACH PO QDAY 04/02/12 Allergies: Coded Allergies: Tetanus Vaccines and Toxoid (Verified Allergy, Mild, TETANUS(HORSE SERUM) , 05/15/18) codeine (Verified Allergy, Mild, 05/15/18) sulfamethoxazole (Verified Allergy, Mild, 05/15/18) trimethoprim (Verified Allergy, Mild, 05/15/18) albuterol (Verified Adverse Reaction, Mild, CAUSED HIGH BP AND HR, 05/15/18 ) amitriptyline (Verified Adverse Reaction, Mild, MULTIPLE SIDE EFFECTS, ) droperidol (Verified Adverse Reaction, Mild, NAUSEA, 05/15/18) gabapentin (Verified Adverse Reaction, Mild, CAUSES ANGER, MOOD SWINGS, ) morphine (Verified Adverse Reaction, Mild, NAUSEA, 05/15/18) trazodone (Verified Adverse Reaction, Mild, ANGER, MOOD SWINGS, 05/15/18) NSAIDS (Non-Steroidal Anti-Inflamma (Verified Adverse Reaction, Unknown, RECOMMENDED NOT TO TAKE R/T KIDNEY FUNCTION, 05/15/18) lisinopril (Verified Adverse Reaction, Unknown, RECOMMENDED NOT TO TAKE R/ T KIDNEY FUNCTIONS, 05/15/18) Uncoded Allergies: Fragrence (Adverse Reaction, Mild, "BREAK OUT" , 05/05/18) Patient History: FH: alcoholism brother FH: bipolar disorder brother FH: brain tumor FATHER (Glioblastoma), , Age:78 FH: cancer Grandmother, FH: coronary artery disease FH: diabetes mellitus FATHER (Glioblastoma), , Age:78 FH: hypertension FATHER (Glioblastoma), , Age:78 FH: stroke MOTHER (Strokes in 70s), Hx Smoking: Yes (SMOKED FOR 2 YEARS LONG TIME AGO) Smoking Status: Former Smoker Exposure to Second Hand Smoke?: No Caffeine Intake: Coffee Caffeine/Cups Per Day: 1 cup per day Hx Alcohol Use: No Hx Substance Use Disorder: No Social Drug Use: Never Review of Systems All Systems Reviewed/Normal: Yes, Except as Noted Other Midline low back pain over incision without radiation, R leg weakness. 10 point ROS otherwise negative. Exam Vital Signs Vital Signs Date Time Temp Pulse Resp B/P (MAP) Pulse Ox O2 Delivery O2 Flow Rate FiO2 05/15/18 06:41 62 16 120/62 (81) 96 Nasal Cannula 1.0 05/15/18 03:43 98.0 General Appearance: Awake, No Acute Distress, Afebrile Neuro: No Gross deficits Eyes: PERRLA ENT: Normal Neck: No Masses Cardiovascular: Normal Rhythm & Peripheral Pulses Respiratory: No Respiratory Distress, Clear to Auscultation Chest: No Masses GI: Abd Soft and Non-Tender Lymph: No Adenopathy Musculoskeletal: Other (R leg weakness, good pulses, no numbness) Extremities: Soft and Non Tender, Warm, Pulses, Perfused Integumentary: Skin Intact without Lesion / Mass Psych: Alert & Oriented X3 Medical Decision Making Data Points Result Diagram: 05/15/1841705/15/188 Assessment and Plan Problems: (1) Weakness Status: Acute Assessment & Plan: Per Dr Ventura suspected to be normal post operative progression. Will consult PT/OT and monitor, consider further imaging if progresses or alarm symptoms develop. (2) Post-op pain Status: Acute Assessment & Plan: Pain local to incision site, no alarm symptoms. Continue home Lortab. (3) Chronic kidney disease (CKD), stage III (moderate) Status: Chronic Assessment & Plan: Per history, suspect this is incorrect as clearance is much better at admission. Monitor lab. (4) Hypothyroidism Status: Chronic Assessment & Plan: Continue home dose levothyroxine. (5) Hypertension Status: Chronic Assessment & Plan: On metoprolol, triamterene/HCTZ. (6) Asthma Assessment & Plan: Per pt has Hx of asthma, continue home Advair and PRN albuterol. (7) Asymptomatic bacteriuria Assessment & Plan: Poor quality UA, patient denies symptoms. One dose Rocephin in ER, consider repeat UA. Treatment of asymptomatic bacteriuria is not indicated. Consider treatment if symptoms develop. Venous Thromboembolism Antithrombotics Is Pt On Any Antithrombotics?: Yes Exam Sepsis Risk: No Definite Risk CANO RADHA BENNETT DO May 15, 2018 08:14
[2018-05-15] MEDS: APAP/HYDROCODONE 325/5 TAB PO PRN ×3 (08:34→21:06)
[2018-05-15] MEDS: DIAZEPAM 5 MG TAB PO SCH ×2 (08:34→17:05)
[2018-05-15] MEDS: ATORVASTATIN 40 MG TAB PO SCH (08:36)
[2018-05-15] MEDS: PREGABALIN 50 MG CAP PO SCH ×2 (08:36→21:04)
[2018-05-15] MEDS: DOCUSATE CALCIUM 240 MG CAP PO SCH (08:36)
[2018-05-15] MEDS: ASPIRIN 81 MG ENTERIC COATED PO SCH (08:36)
[2018-05-15] MEDS: METOPROLOL SUCC XL 25 MG TABCR PO SCH (08:38)
[2018-05-15] MEDS ORDERED: FLUTICASONE PROP 0.05% 16 GM PRN (09:00)
[2018-05-15] MEDS ORDERED: ENOXAPARIN 40 MG/0.4ML SYR SC SCH (09:00)
[2018-05-15] MEDS ORDERED: TRIAMTERENE/HCTZ 37.5-25MG CAPSULE PO SCH (09:00)
[2018-05-15] MEDS: SALMETEROL/FLUTIC 250/50 1 INH INH SCH ×2 (09:15→17:10)
[2018-05-15 09:26] VITALS: Ht 165.1 cm; Wt 73.9 kg
[2018-05-15] MEDS: LANSOPRAZOLE 15 MG CAPCR PO SCH (10:05)
[2018-05-15] MEDS: LEVOTHYROXINE SOD 0.1 MG TAB PO SCH (10:05)
[2018-05-15 11:07] VITALS: BP 122/53
[2018-05-15 16:16] VITALS: BP 128/64
[2018-05-15 18:54] VITALS: BP 131/54
[2018-05-16 02:40] VITALS: BP 156/79
[2018-05-16] MEDS: APAP/HYDROCODONE 325/5 TAB PO PRN (03:26)
[2018-05-16 06:01] LABS: PLATELET COUNT, AUTOMATED 208 K/uL (150-450)
[2018-05-16] MEDS: SALMETEROL/FLUTIC 250/50 1 INH INH SCH ×2 (06:14→17:48)
[2018-05-16] MEDS: LEVOTHYROXINE SOD 0.1 MG TAB PO SCH (06:20)
[2018-05-16 08:10] VITALS: BP 165/79
[2018-05-16] MEDS ORDERED: DIAZEPAM 5 MG TAB PO PRN (09:25)
[2018-05-16] MEDS ORDERED: BISACODYL 10 MG SUPP PR PRN (09:40)
[2018-05-16] MEDS ORDERED: DOCUSATE SODIUM 100 MG CAP PO SCH (09:40)
[2018-05-16] MEDS ORDERED: MAGNESIUM HYDROXIDE* 30ML UDCP PO PRN (09:40)
[2018-05-16] MEDS: DOCUSATE CALCIUM 240 MG CAP PO SCH (09:42)
[2018-05-16] MEDS: ATORVASTATIN 40 MG TAB PO SCH (09:42)
[2018-05-16] MEDS: ASPIRIN 81 MG ENTERIC COATED PO SCH (09:42)
[2018-05-16] MEDS: METOPROLOL SUCC XL 25 MG TABCR PO SCH (09:42)
[2018-05-16] MEDS: PREGABALIN 50 MG CAP PO SCH ×2 (09:42→21:11)
[2018-05-16] MEDS: POLYETHYLENE GLYCOL 17 GM PKT PO SCH (10:01)
[2018-05-16] MEDS: LIDOCAINE 5% PATCH TP SCH (10:01)
[2018-05-16] MEDS: LANSOPRAZOLE 15 MG CAPCR PO SCH (10:02)
[2018-05-16 10:48] VITALS: BP 154/69
--- NOTE | 2018-05-16 11:30 | Hospitalist Progress Note ---
Subjective Progress Notes Subjective She was admitted for pain control after lumbar surgery. She has increased confusion and does not know where she is located now. She is requiring sit-to- stand for bathroom mobility. Patient Complains of: Cardiovascular: No: Chest Pain Respiratory: No: Shortness of Breath Physical Exam Vital Signs Date Time Temp Pulse Resp B/P (MAP) Pulse Ox O2 Delivery O2 Flow Rate FiO2 05/16/18 10:48 98.5 76 12 154/69 (97) 97 Nasal Cannula 2.0 Intake and Output 05/17/18 07:00 Intake Total 120 ml Balance 120 ml Intake Oral 120 ml General Appearance: Awake, No Acute Distress Cardiovascular: Regular Rate and Rhythm Respiratory: No Respiratory Distress, Clear to Auscultation GI: Soft and Non-Tender Musculoskeletal: Other (bruising noted to back) Extremities: Warm, Perfused, No Edema, Other (weakness noted to bilateral lower extremities) Psych: Appropriate Mood & Affect Result Diagram: 05/16/1852605/16/18526 Assessment and Plan Problems: (1) Weakness Status: Acute Assessment & Plan: Per Dr Ventura suspected to be normal post operative progression. Will consult PT/OT and monitor. (2) Post-op pain Status: Acute Assessment & Plan: Pain local to incision site, no alarm symptoms. Continue home Lortab. Will add Lidoderm patch to right lower back and add Valium for muscle relief. (3) Confusion Status: Acute Assessment & Plan: The patient is appearing to get agitated at times and does not know where she is located. We will get CT scan of her head today. (4) Chronic kidney disease (CKD), stage III (moderate) Status: Chronic Assessment & Plan: Per history, suspect this is incorrect as clearance is much better at admission. Monitor lab. (5) Hypothyroidism Status: Chronic Assessment & Plan: Continue home dose levothyroxine. (6) Hypertension Status: Chronic Assessment & Plan: On metoprolol, triamterene/HCTZ. (7) Asthma Assessment & Plan: Per pt has Hx of asthma, continue home Advair and PRN albuterol. (8) Asymptomatic bacteriuria Assessment & Plan: Poor quality UA done prior to admission. Repeat urine negative. Patient not having UTI symptoms. Exam Sepsis Risk: No Definite Risk NORBERTO AGUERO RHIA May 16, 2018 11:30
--- NOTE | 2018-05-16 13:26 | RADIOLOGY IMAGING REPORT ---
FAC[place] [facility] [place] NAME: Kari Humphries : 1940 MR: [id number] V: [id number] EXAM DATE: ORDERING PHYSICIAN: NORBERTO AGUERO TECHNOLOGIST: [place] [facility] [place] Patient: Kari Humphries : 1940 Visit/Account:[id number] Date of Sevice: 05/16/2018 EXAMINATION: CT head without IV contrast HISTORY: Confusion, agitation. COMPARISON: None. TECHNIQUE: Contiguous axial images were obtained from the skull base to the vertex without intraven ous contrast. Sagittal and coronal reformatted images are also submitted. One of the following dose optimization techniques was utilized in the performance of this exam: Autom ated exposure control; adjustment of the mA and/or kV according to the patient's size; or use of an i terative reconstruction technique. Specific details can be referenced in the facility's radiology C T exam operational policy. FINDINGS: Brain volume: Normal. Ventricles: Normal. Acute ischemic changes: None. Hemorrhage: No acute intracranial hemorrhage. Masses/edema: None. Coleman-white: Negative. White matter: A few hypodensities in the deep white matter bilaterally. Vessels: Calcified plaque of the vertebral arteries and carotid siphons at the skull base. Extra-axial: Negative. Calvarium/scalp: Negative. Skull base/visualized face: Negative. Visualized sinuses/orbits: Previous right lens surgery. IMPRESSION: 1. No intracranial mass lesion or hemorrhage. No CT evidence of acute infarct. 2. Mild nonspecific white matter disease is suspicious for chronic small vessel ischemia. Report Dictated By: Gayle Bradshaw MD at 05/16/2018 1:20 PM Report E-Signed By: Gayle Bradshaw MD at 05/16/2018 1:22 PM [id number]
--- NOTE | 2018-05-16 15:16 | Miscellaneous Provider Note ---
Miscellaneous Provider Note Note Patient became more confused this am after rounds. DDx includes adverse medication effect vs delirium vs infectious etiology. Encephalopathy - received Valium x2 yesterday, stopped Rx - ESR and CRP elevated on admission 2/2 postoperative stress reaction vs infection, will recheck in am if more elevated and pt remains confused LP could be considered given recent surgical intervention of spine - no meningeal signs on examination, neuro exam benign RADHA UPTON DO May 16, 2018 15:16
[2018-05-16] MEDS: CYCLOBENZAPRINE HCL 10 MG TAB PO PRN (15:56)
[2018-05-16 19:01] VITALS: BP 162/73
[2018-05-16] MEDS: PATCH REMOVAL 1 EA TP SCH (21:00)
[2018-05-17] MEDS: MELATONIN 3 MG TAB PO PRN ×2 (01:38→20:40)
[2018-05-17] MEDS: CYCLOBENZAPRINE HCL 10 MG TAB PO PRN ×2 (01:38→20:40)
[2018-05-17 01:51] VITALS: BP 133/76
[2018-05-17] MEDS: LEVOTHYROXINE SOD 0.1 MG TAB PO SCH (06:26)
[2018-05-17 07:33] VITALS: BP 141/64
[2018-05-17] MEDS: SALMETEROL/FLUTIC 250/50 1 INH INH SCH ×2 (08:26→17:55)
[2018-05-17] MEDS: METOPROLOL SUCC XL 25 MG TABCR PO SCH (08:54)
[2018-05-17] MEDS: ASPIRIN 81 MG ENTERIC COATED PO SCH (08:54)
[2018-05-17] MEDS: LIDOCAINE 5% PATCH TP SCH (08:54)
[2018-05-17] MEDS: DOCUSATE CALCIUM 240 MG CAP PO SCH (08:54)
[2018-05-17] MEDS: ATORVASTATIN 40 MG TAB PO SCH (08:54)
[2018-05-17] MEDS: PREGABALIN 50 MG CAP PO SCH ×2 (08:54→20:40)
[2018-05-17] MEDS: POLYETHYLENE GLYCOL 17 GM PKT PO SCH (08:55)
[2018-05-17] MEDS: LANSOPRAZOLE 15 MG CAPCR PO SCH (08:56)
[2018-05-17 11:06] VITALS: BP 132/62
--- NOTE | 2018-05-17 11:50 | Hospitalist Progress Note ---
Subjective Progress Notes Subjective This patient was admitted for weakness. She had no acute events overnight. Patient Complains of: Cardiovascular: No: Chest Pain Respiratory: No: Shortness of Breath Physical Exam Vital Signs Date Time Temp Pulse Resp B/P (MAP) Pulse Ox O2 Delivery O2 Flow Rate FiO2 05/17/18 11:06 98.4 73 16 132/62 (85) 98 Nasal Cannula 1.5 Intake and Output 05/18/18 07:00 Intake Total 0 ml Balance 0 ml Intake Oral 0 ml # Voids 2 Cardiovascular: Regular Rate and Rhythm Respiratory: Clear to Auscultation Result Diagram: 05/16/1852605/16/18526 Assessment and Plan Problems: (1) Weakness Status: Acute Assessment & Plan: Per Dr Ventura suspected to be normal post operative progression. Physical therapy has been consulted. (2) Post-op pain Status: Acute Assessment & Plan: Pain local to incision site, no alarm symptoms. She is receiving lidocaine patches and Lortab. (3) Confusion Status: Acute Assessment & Plan: A CT scan of the head was negative for acute pathology. Her confusion is believed to be medication related. (4) Chronic kidney disease (CKD), stage III (moderate) Status: Chronic Assessment & Plan: Per history, suspect this is incorrect as clearance is much better at admission. Monitor lab. (5) Hypothyroidism Status: Chronic Assessment & Plan: Continue home dose levothyroxine. (6) Hypertension Status: Chronic Assessment & Plan: On metoprolol, triamterene/HCTZ. (7) Asthma Assessment & Plan: Per pt has Hx of asthma, continue home Advair and PRN albuterol. (8) Asymptomatic bacteriuria Assessment & Plan: Poor quality UA done prior to admission. Repeat urine negative. Patient not having UTI symptoms. Exam Sepsis Risk: No Definite Risk JOSE MANUEL URRUTIA DO May 17, 2018 11:50
[2018-05-17 15:33] VITALS: BP 124/67
[2018-05-17 19:48] VITALS: BP 155/74
[2018-05-17] MEDS: PATCH REMOVAL 1 EA TP SCH (20:44)
[2018-05-17] MEDS: APAP/HYDROCODONE 325/5 TAB PO PRN (23:34)
[2018-05-18 04:24] VITALS: BP 125/51
[2018-05-18] MEDS: SALMETEROL/FLUTIC 250/50 1 INH INH SCH ×2 (05:36→17:17)
[2018-05-18] MEDS: LEVOTHYROXINE SOD 0.1 MG TAB PO SCH (06:16)
[2018-05-18] MEDS: APAP/HYDROCODONE 325/5 TAB PO PRN ×2 (06:19→20:19)
[2018-05-18 07:11] VITALS: BP 129/56
[2018-05-18] MEDS: POLYETHYLENE GLYCOL 17 GM PKT PO SCH (09:37)
[2018-05-18] MEDS: ASPIRIN 81 MG ENTERIC COATED PO SCH (09:39)
[2018-05-18] MEDS: PREGABALIN 50 MG CAP PO SCH ×2 (09:39→20:19)
[2018-05-18] MEDS: LANSOPRAZOLE 15 MG CAPCR PO SCH (09:39)
[2018-05-18] MEDS: LIDOCAINE 5% PATCH TP SCH (09:39)
[2018-05-18] MEDS: METOPROLOL SUCC XL 25 MG TABCR PO SCH (09:39)
[2018-05-18] MEDS: DOCUSATE CALCIUM 240 MG CAP PO SCH (09:40)
[2018-05-18] MEDS: CYCLOBENZAPRINE HCL 10 MG TAB PO PRN ×2 (09:40→22:45)
[2018-05-18] MEDS: ATORVASTATIN 40 MG TAB PO SCH (09:40)
--- NOTE | 2018-05-18 10:41 | Hospitalist Progress Note ---
Subjective Progress Notes Subjective The patient feels much better today. Nursing staff reports she is moving much better and no longer confused. Physical Exam Vital Signs Date Time Temp Pulse Resp B/P (MAP) Pulse Ox O2 Delivery O2 Flow Rate FiO2 05/18/18 07:11 98.3 79 16 129/56 (80) 93 Nasal Cannula 1.5 Intake and Output 05/19/18 07:00 Intake Total 0 ml Balance 0 ml Intake Oral 0 ml # Voids 1 General Appearance: Alert, Awake, No Acute Distress Neuro: No Gross deficits Cardiovascular: Regular Rate and Rhythm Respiratory: Clear to Auscultation GI: Soft and Non-Tender Extremities: Warm, Perfused, Other (No edema.) Psych: Appropriate Mood & Affect Result Diagram: 05/16/1852605/16/18526 Assessment and Plan Problems: (1) Weakness Status: Acute Assessment & Plan: Per Dr Ventura suspected to be normal post operative progression. Physical therapy has been consulted. (2) Post-op pain Status: Acute Assessment & Plan: Pain local to incision site, no alarm symptoms. She is receiving lidocaine patches and Lortab. (3) Confusion Status: Acute Assessment & Plan: A CT scan of the head was negative for acute pathology. Her confusion was believed to be medication related. She is back to her baseline today. (4) Chronic kidney disease (CKD), stage III (moderate) Status: Chronic Assessment & Plan: Per history, suspect this is incorrect as clearance is much better at admission. Monitor lab. (5) Hypothyroidism Status: Chronic Assessment & Plan: Continue home dose levothyroxine. (6) Hypertension Status: Chronic Assessment & Plan: On metoprolol, triamterene/HCTZ. (7) Asthma Assessment & Plan: Per pt has Hx of asthma, continue home Advair and PRN albuterol. (8) Asymptomatic bacteriuria Assessment & Plan: Poor quality UA done prior to admission. Repeat urine negative. Patient not having UTI symptoms. Urine culture negative as well. Time Spent on Plan of Care: < 30 min Exam Sepsis Risk: No Definite Risk OLAYINKA SOARES MD May 18, 2018 10:41
[2018-05-18 11:25] VITALS: BP 137/66
[2018-05-18 14:26] VITALS: BP 129/64
[2018-05-18 19:31] VITALS: BP 136/68
[2018-05-18] MEDS: PATCH REMOVAL 1 EA TP SCH (22:44)
[2018-05-19 05:32] VITALS: BP 142/67
[2018-05-19] MEDS: LEVOTHYROXINE SOD 0.1 MG TAB PO SCH (05:35)
[2018-05-19] MEDS: APAP/HYDROCODONE 325/5 TAB PO PRN (05:40)
[2018-05-19] MEDS: SALMETEROL/FLUTIC 250/50 1 INH INH SCH (05:44)
[2018-05-19 06:16] LABS: PLATELET COUNT, AUTOMATED 306 K/uL (150-450)
[2018-05-19 08:14] VITALS: BP 166/78
[2018-05-19] MEDS: ASPIRIN 81 MG ENTERIC COATED PO SCH (08:56)
[2018-05-19] MEDS: DOCUSATE CALCIUM 240 MG CAP PO SCH (08:56)
[2018-05-19] MEDS: METOPROLOL SUCC XL 25 MG TABCR PO SCH (08:56)
[2018-05-19] MEDS: ATORVASTATIN 40 MG TAB PO SCH (08:56)
[2018-05-19] MEDS: POLYETHYLENE GLYCOL 17 GM PKT PO SCH (08:56)
[2018-05-19] MEDS: PREGABALIN 50 MG CAP PO SCH (08:56)
[2018-05-19] MEDS: LANSOPRAZOLE 15 MG CAPCR PO SCH (08:56)
[2018-05-19] MEDS: LIDOCAINE 5% PATCH TP SCH (08:57)
[2018-05-19] MEDS: CYCLOBENZAPRINE HCL 10 MG TAB PO PRN (09:03)
[2018-05-19] MEDS ORDERED: LIDO700A19 TP (10:00)
--- NOTE | 2018-05-19 10:05 | Hospitalist Depart ---
Discharge Summary Reason for Hosp/Final Diag: (1) Weakness Status: Acute Hospital Course & Plan: Per Dr Ventura suspected to be normal post operative progression. Physical therapy was consulted and she will discharge with home health for therapy. (2) Post-op pain Status: Acute Hospital Course & Plan: Pain local to incision site, no alarm symptoms. She is receiving lidocaine patches and Lortab. (3) Confusion Status: Acute Hospital Course & Plan: A CT scan of the head was negative for acute pathology. Her confusion was believed to be medication related. Her diazepam was discontinued. (4) Hypothyroidism Status: Chronic Hospital Course & Plan: She is on chronic treatment with levothyroxine. (5) Hypertension Status: Chronic Hospital Course & Plan: She is on chronic treatment with metoprolol and triamterene/HCTZ. (6) Asthma Hospital Course & Plan: She is on chronic treatment with Advair. (7) Asymptomatic bacteriuria Hospital Course & Plan: She had a poor quality urine sample on admission. It was repeated and found to be clear. Departure Latest Vital Signs Vital Signs 05/19/18 05/19/18 05:32 08:14 Temp 98.2 Pulse 81 Resp 20 B/P (MAP) 166/78 (107) Pulse Ox 93 O2 Delivery Room Air O2 Flow Rate 2.0 Weight (Pounds): 163 Weight (Ounces): 7.0 Result Diagram: 05/19/1852605/19/18526 Condition: Improved Discharge: Home, Home Health PT/OT Follow Up For: PT For Surgical Rehab, OT For ADL's Home Health RN Follow Up For: Medication Management, Nursing Assessment Home Health MANAGER IMAGING Follow Up For: ADL Assistance Discharge Instructions Home Meds Active Scripts Lidocaine (Lidocaine) 5 % Adh..patch, 1 EACH TP QDAY, #30 PATCH Prov:JOSE MANUEL URRUTIA DO 05/19/18 Fluticasone/Salmeterol (ADVAIR 250-50 DISKUS) 1 Each Disk.w.dev, 1 EACH IH BID, #3 INHALER 4 Refills Prov:JOEY HERRERA MD 12/19/17 Levothyroxine Sodium (LEVOTHYROXINE SODIUM) 100 Mcg Tablet, 1 TAB PO QDAY, #90 TAB 3 Refills Prov:JOEY HERRERA MD 12/19/17 Triamterene/Hydrochlorothiazid (TRIAMTERENE-HCTZ 37.5-25 MG TB) 1 Each Tablet, 0.5 TAB PO QAM, #45 TAB 3 Refills Prov:JOEY HERRERA MD 12/19/17 Atorvastatin Calcium (ATORVASTATIN CALCIUM) 40 Mg Tablet, 1 TAB PO QDAY, #90 TAB 3 Refills Prov:JOEY HERRERA MD 12/19/17 Metoprolol Succinate (METOPROLOL SUCCINATE) 25 Mg Tab.er.24h, 1 TAB PO QDAY, # 90 TAB 3 Refills Prov:JOEY HERRERA MD 12/19/17 Acyclovir (ACYCLOVIR) 400 Mg Tablet, 1 TAB AD TID Y for prn, #90 TAB 3 Refills Prov:JOEY HERRERA MD 12/19/17 Reported Medications Docusate Calcium (SURFAK) 240 Mg Capsule, 240 MG PO QDAY, #9 CAPSULE 05/13/18 Hydrocodone Bit/Acetaminophen (HYDROCODON-ACETAMINOPHEN 5-325) 1 Each Tablet, 1- 2 EACH PO Q6H for PAIN, #36 TAB 05/13/18 Fluticasone Prop 50 Mcg Ns (FLONASE 50 MCG NS) 16 Gm [place].susp, 1 SPRAY NS PRN , BOT 05/05/18 Oxygen (OXYGEN) Inha, 2 L INH QHS, L 05/05/18 Lansoprazole (LANSOPRAZOLE) 15 Mg Capsule.dr, 15 MG PO QDAY 12/17/16 Aspirin (ASPIR 81) 81 Mg Tablet.dr, 81 MG PO QDAY, TAB 12/17/16 Carboxymethylcellulose Sodium (REFRESH PLUS) Unknown Strength Droperette, 1 EACH OP BID 12/17/16 Pregabalin (LYRICA) 100 Mg Capsule, 1 CAP PO BID, CAPSULE 12/14/15 Calcium Carb & Cit/Vitamin D3 (CITRACAL + D ER TABLET) 1 Each Tablet.er, 1 EACH PO 12/27/13 Discontinued Reported Medications Diazepam (VALIUM) 5 Mg Tablet, 5 MG PO Q8H for Muscle Relaxant, #16 TAB 05/13/18 Mu-Vits-Min Th/Lycopene/Lutein (CENTRUM SILVER TABLET) 1 Each Tablet, 1 EACH PO QDAY 04/02/12 Diet: Regular Activity: As Tolerated Copies to: JOEY HERRERA MD; ABRAHAM VENTURA MD Venous Thromboembolism Antithrombotics Is Pt On Any Antithrombotics?: Yes [id number] Certification Face to Face Home Health Certification Institutional Provider conducted the [id number] encounter. Electronic Undersigning Physician Certifies Home Health. I certify that the patient has been under my care and that I had a [id number] encounter that meets the physician [id number] encounter requirements with this patient. This patient is home-bound due to safety issues and continues to require assistance with ADL's. I certify that based on my findings, that Nursing, Aides and the following Home Health services are medically necessary: Medical Necessity: Nursing, Rehab Date Face to Face Conducted: May 19, 2018 Problem Qualifiers (1) Hypertension: Hypertension type: essential hypertension Qualified Codes: I10 - Essential ( primary) hypertension JOSE MANUEL URRUTIA DO May 19, 2018 10:05
[2018-05-19] MEDS ORDERED: CYCL10TA29 PO (11:40)
== END 2018-05-19 10:00 | disposition home health service (06) ==
LOC: ER 03:52 → OBSVTOIN 06:09 → MED 06:09 → INTOOBSV 06:09
PROVIDERS: ADMIT Internal Medicine; ATTEND Internal Medicine
DX: N30.00 Acute cystitis without hematuria (principal); R53.1 Weakness; G89.18 Other acute postprocedural pain; I12.9 Hypertensive chronic kidney disease with stage 1 through stage 4 chronic kidney disease, or unspecified chronic kidney disease; N18.3 Chronic kidney disease, stage 3 (moderate); E03.9 Hypothyroidism, unspecified; J45.909 Unspecified asthma, uncomplicated; R82.71 Bacteriuria; R41.0 Disorientation, unspecified
CPT/HCPCS: 36415; 70450; 81001; 85025; 85651; 86140; 87088; 94640; 96361; 96372; 96374; 97116; 97161; 97166; 97530; 99284; A9270; G0378; J0696; J1650; J3535; J7030; 82040; 82247; 82310; 82374; 82435; 82565; 82947; 84075; 84132; 84155; 84295; 84450; 84460; 84520

== ENCOUNTER → 2018-05-15 | Outpatient (CLI) | payer MEDICARE, BC ==
[~2018-05-15] MED LIST changes: +CYCL10TA29 PO; +LIDO700A19 TP
[2018-05-15 09:26] VITALS: BMI 24.6
== END ==
LOC: AMB 03:12
PROVIDERS: ATTEND Nurse Practitioner
DX: M54.9 Dorsalgia, unspecified (principal)
CPT/HCPCS: A0425; A0429

== ENCOUNTER → 2018-06-11 | Outpatient (CLI) | payer MEDICARE, BC ==
[2018-05-15 09:26] VITALS: BMI 24.6
[~2018-06-11] MED LIST changes: +CYCL10TA29 PO; +LIDO700A19 TP
[2018-06-11 16:47] LABS: PLATELET COUNT, AUTOMATED 339 K/uL (150-450)
--- NOTE | 2018-06-11 18:49 | EKG ---
FACILITY: [facility] PATIENT NAME: ORAL PARMAR : [id number] MR: [id number] V: [id number] EXAM DATE: ORDERING PHYSICIAN: JOEY HERRERA TECHNOLOGIST: MANJEET Test Reason : CONFUSION Blood Pressure : / mmHG Vent. Rate : 079 BPM Atrial Rate : 079 BPM P-R Int : 204 ms QRS Dur : 086 ms QT Int : 386 ms P-R-T Axes : 061 068 062 degrees QTc Int : 442 ms Normal sinus rhythm Normal ECG When compared with ECG of 18-APR-2018 08:50, Previous ECG has undetermined rhythm, needs review Confirmed by JOEY HERRERA ([id number]) on 06/16/2018 12:53:59 PM Referred By: Confirmed By:JOEY HERRERA
== END ==
LOC: LAB 16:13
PROVIDERS: ATTEND Emergency Medicine
DX: R41.0 Disorientation, unspecified (principal)
CPT/HCPCS: 36415; 82040; 82247; 82310; 82374; 82435; 82565; 82607; 82947; 84075; 84132; 84155; 84295; 84450; 84460; 84520; 85007; 85027; 85379

== ENCOUNTER → 2018-06-12 | Outpatient (CLI) | payer MEDICARE, BC ==
[2018-05-15 09:26] VITALS: BMI 24.6
[~2018-06-12] MED LIST changes: +IOPAMIDOL 76% 75 ML INFUS BTL 75 ML ONE; +NS(*) 0.9% 50 ML BAG 0 ML ONE; +NS(*) 0.9% 50 ML BAG 50 ML ONE
--- NOTE | 2018-06-12 12:34 | RADIOLOGY IMAGING REPORT ---
[place] [facility] [place] Kari Humphries : 1940 MR: [id number] V: [id number] EXAM DATE: ORDERING PHYSICIAN: JOEY HERRERA TECHNOLOGIST: Location: [facility] [place] Patient: Kari Humphries : 1940 Visit/Account:[id number] Date of Sevice: 06/12/2018 EXAMINATION: CTA chest with IV contrast HISTORY: Positive d-dimer. Back surgery 04/2018. Shortness of breath. COMPARISON: CTA chest from 08/20/2010 and chest radiograph from 05/07/2018. TECHNIQUE: Pulmonary embolus protocol - Thin-slice axial imaging of the chest was performed during maximal pulmonary arterial opacification with intravenous nonionic iodinated contrast. 3D sagittal an d coronal slab MIPs and 2D reconstructions in the coronal and sagittal planes were performed to aid i n pulmonary embolus detection. Visual Stylist images have been stored on PACS. CONTRAST: 75 mL of IV Isovue-370. One of the following dose optimization techniques was utilized in the performance of this exam: Autom ated exposure control; adjustment of the mA and/or kV according to the patient's size; or use of an i terative reconstruction technique. Specific details can be referenced in the facility's radiology C T exam operational policy. FINDINGS: CTA CHEST: Please note that this exam is optimized for assessment of the pulmonary arteries and is not intended as a diagnostic study of the thoracic aorta, coronary arteries or venous structures. Angiographic Findings: Pulmonary arteries: There are no filling defects in the main, right, left, lobar, segmental or visual ized sub-segmental branches of the pulmonary arterial system. No intraluminal webs or bronchial salma aterals. Other vasculature: Atherosclerotic calcifications of the aorta and coronary arteries. Vascular str uctures are patent. Additional non-angiographic findings: Lungs/pleura: There is mild central bronchial wall thickening and bibasilar atelectasis. No focal consolidation or pleural effusion. Small calcified right lower lobe nodule is unchanged. Mediastinum/yaima: Negative. Heart/pericardium: Negative. Musculoskeletal/body wall: Mild degenerative changes of the thoracic spine. There is fusion hardwa re at the left cervicothoracic junction partly visualized. Lymph nodes: Small calcified right hilar lobes are unchanged. Upper abdomen: Several coarse calcifications in the spleen are unchanged. Lower neck: Negative. IMPRESSION: 1. No evidence of acute or chronic pulmonary embolism. 2. Mild central bronchial wall thickening could be due to acute bronchitis, or chronic effects of as thma. 3. Mild bibasilar atelectasis. 4. Chronic granulomatous disease, unchanged. A message regarding these findings was left with Neelima, nurse for JOEY SHARON at 06/12/2018 12:29 PM . Report Dictated By: Gayle Bradshaw MD at 06/12/2018 12:21 PM Report E-Signed By: Gayle Bradshaw MD at 06/12/2018 12:30 PM WSN:[email or web address]
== END ==
LOC: CT 11:35
PROVIDERS: ATTEND Emergency Medicine
DX: R91.8 Other nonspecific abnormal finding of lung field (principal)
CPT/HCPCS: 71275; J7050; Q9967

== ENCOUNTER → 2018-08-20 | Outpatient (CLI) | payer MEDICARE, BC ==
[2018-05-15 09:26] VITALS: BMI 24.6
[~2018-08-20] MED LIST changes: -IOPAMIDOL 76% 75 ML INFUS BTL 75 ML ONE; -NS(*) 0.9% 50 ML BAG 0 ML ONE; -NS(*) 0.9% 50 ML BAG 50 ML ONE
[2018-08-20 09:45] LABS: PLATELET COUNT, AUTOMATED 332 K/uL (150-450)
== END ==
LOC: LAB 09:14
PROVIDERS: ATTEND Internal Medicine Nephrology
DX: I12.9 Hypertensive chronic kidney disease with stage 1 through stage 4 chronic kidney disease, or unspecified chronic kidney disease (principal); N18.2 Chronic kidney disease, stage 2 (mild); Q63.9 Congenital malformation of kidney, unspecified; R94.4 Abnormal results of kidney function studies
CPT/HCPCS: 36415; 81001; 82040; 82247; 82310; 82374; 82435; 82465; 82565; 82947; 83718; 84075; 84132; 84155; 84295; 84450; 84460; 84478; 84520; 85025

== ENCOUNTER 2018-09-01 08:15 | Outpatient (RCR) | payer MEDICARE, BC ==
[2018-05-15 09:26] VITALS: BMI 24.6
--- NOTE | 2018-06-25 13:37 | PT INITIAL EVALUATION ---
MEDICAL DIAGNOSIS: L3-5 fusion TREATMENT DIAGNOSIS: Same, L2-S1 laminectomies DATE OF ONSET: 05/12/18 SUBJECTIVE: Kari Humphries presents to PT for core strengthening, conditioning, balance training to regain independent gait, function. She had L3-5 fusion, L2- S1 laminectomies. Oswestry Disability Index 10%. Kari relates she doesn't lift heavy objects as her helps her with anything heavy. Pain location is L-S and described as ache. Pain scale is 2 on a ten point pain scale. Pain is worse with walking without her brace and better with wearing her brace. REHAB PROBLEM LIST: Reduced endurance, ADL function, gait, balance, ROM, LBP with ambulation PREVIOUS MEDICAL HISTORY: Cervical fusion with hardware removal, upper thoracic fusion, neuropathy, 2010 meniscus repair, sleep apnea, congenital kidney disease, L wrist tendinitis. OCCUPATION: Retired, live with her in a home with 1-2 steps, not gardening, doing community ambulation, quilting, yard sales or walking long community distances as she did before her surgery. She's weaning off her brace and cane. OBJECTIVE: Posture: Flattened lumbar curve, iliac crests even. ROM: Minimal lumbar flexion, extension, while side bend R WNL for fusions, L SB minimal, muscle tightness. Strength: Core strength 3-/5, LE's 4+ to 5-/5 except calves 3/5. Special Tests: Negative SLR, B, hamstring flexibility 60 deg. B. Mobility: Sit to stand from low chair in three attempts, UE use, from 21" height one attempt without UE use. Repeated sit to stand with O2 93% and HR 105. Gait: Cane, step through pattern, gait speed 2.3 feet/second, a limited community ambulator rating, O2 93%, HR 90. Balance: Augustin Balance Assessment 47/56, a normal fall risk for community ambulation. ASSESSMENT: Kari Humphries presents with altered balance, gait, weak core, not at prior level of ADL function. She did well with core strengthening, balance and gait training today. Short Term Goals 4 weeks: Kari ambulates 15 to 20 minutes with O2 in the 90's, cane. 6 weeks: Kari ambulates long community distances independently, stands at the kitchen counter 30-60 minutes with quilting, walks around yard sales with balance control. Patient's Goals Walk at [employer], yard sales without falling, stand at the kitchen counter for crafts, get rid of brace and walk without LBP. PLAN: Patient to be seen for Therapeutic exercise, Balance and Gait Training, Neuro Re-education, Body Mechanics instruction and HEP 3x/week, 6 weeks. Thank you for this referral. If you have any questions, comments, or concerns about this report or plan, please contact me at . [facility]
--- NOTE | 2018-07-16 13:04 | PT PLAN OF CARE ---
Physician: Dr. Srinivas Ventura Patient is being seen: 3x/week Therapist: Jaylyn Ro PT Medical Diagnosis: L3-5 fusion Treatment Diagnosis: Same, L2-S1 laminectomies Date of Onset: 05/12/18 Date of Initial Evaluation: 06/25/18 Date patient was last seen: 07/16/18 Number of treatments: 10 Number of cancellations/No shows: 0 INTERVENTIONS: Therapeutic exercise, Balance and Gait Training GOALS: 4 weeks: Kari ambulates 15 to 20 minutes with O2 in the 90's, cane. (progressing) 6 weeks: Kari ambulates long community distances independently (progressing), stands at the kitchen counter 30-60 minutes with quilting (not met), walks around yard sales with balance control (met). PATIENT'S GOAL: Walk at quilt shows (not met), yard sales without falling (met), stand at the kitchen counter for crafts (not met), get rid of brace and walk without LBP (progressing). Patient Compliance: Excellent Prognosis: Reasons for continuing therapy: S: Kari reports she isn't using her brace or cane at home, does wear it in the community for safety. Ambulation without a brace creates incisional area ache. Oswestry Disability Index 45% if lifting is considered, which she didn't answer at the evaluation day, if discounted, MAISHA is 15% Posture: Flattened lumbar curve, iliac crests even. ROM: Minimal lumbar flexion, extension, while side bend R WNL for fusions, L SB minimal, muscle tightness. Strength: Core strength 3/5. Gait/Balance: Kari ambulates 1,700 feet in 10 minutes, and B knee pain limits her gait distance, not her spine. She demonstrates corrective balance reactions on uneven surfaces. Mobility: Sit to stand from low chair in one attempt, no UE use. A/P: Kari Humphries is improving strength, gait and is weaning from brace and cane. If you agree, we'll continue 2x/week, 3 more weeks, to goals set as her knees allow. Thank you. KALYAN
--- NOTE | 2018-08-06 09:35 | PT PLAN OF CARE ---
Physician: Dr. Srinivas Ventura Patient is being seen: 3x/week Therapist: Jaylyn Ro, PT Medical Diagnosis: L3-5 fusion, New Dx: L PSIS pain Treatment Diagnosis: Same, L2-S1 laminectomies Date of Onset: 05/12/18 for L PSIS 07/21/18 Date of Initial Evaluation: 06/25/18 Date patient was last seen: 08/06/18 Number of treatments: 19 Number of cancellations/No shows: 0 INTERVENTIONS: Therapeutic Exercise with spinal stabilization, Gait/Balance training, HEP GOALS: 4 weeks: Kari ambulates 15 to 20 minutes with O2 in the 90's, cane. (progressing) 6 weeks: Kari ambulates long community distances independently (progressing), stands at the kitchen counter 30-60 minutes with quilting (not met), walks around yard sales with balance control (met). PATIENT'S GOAL: Walk at quilt shows, yard sales without falling (met), stand at the kitchen counter for crafts (not met), get rid of brace and walk without LBP (progressing). Patient Compliance: Excellent Prognosis: Reasons for adding L PSIS physical therapy: S: Kari presents a new Rx for L PSIS treatment as she's developed acute L PSIS pain with transfers, standing, up to 10/10, stabbing pain. She hasn't returned to quilting, complains of short term memory loss. MAISHA 42%. Posture: Flattened lumbar curve, L posterior ilium. ROM: Minimal lumbar flexion, WNL extension for fusions. Strength: Core strength 4/5 now. Special Tests: SI AROM with reduced L anterior rotation. Joint and soft tissue mobilization to L L5/S1 and PSIS soft tissue reduces L PSIS pain. Mobility: Sit <>stand from low chair in one attempt without UE use, L PSIS pain. Independent log roll, L PSIS pain. Gait: O2 in low 90's with 10 minutes of ambulation, infrequent balance disturbance for altered foot placement (history on neuropathy). Ambulation time is limited by knee OA pain and not L-S pain. Kari is able to ambulate over curbs and uneven surfaces with normal balance reactions. A/P: Kari Humphries is developing L L5/S1 facet and L SI pain as she's more active. Per your Rx, we'll work her L PSIS including modalities, continue to work spinal stabilization, gait and balance, 3x/week 6 more weeks. Thank you. KALYAN
--- NOTE | 2018-08-15 14:26 | PT PLAN OF CARE ---
Physician: Dr. Srinivas Ventura Patient is being seen: 3x/week Therapist: Jaylyn Ro, PT Medical Diagnosis: L3-5 fusion Treatment Diagnosis: Same, L2-S1 laminectomies Date of Onset: 05/12/18 Date of Initial Evaluation: 06/25/18 Date patient was last seen: 08/15/18 Number of treatments: 23 Number of cancellations/No shows: 0 INTERVENTIONS: Spinal Stabilization, Manual Therapy, E-stim/heat, Gait training GOALS: 4 weeks: Kari ambulates 15 to 20 minutes with O2 in the 90's, cane. (progressing, 10 minutes) 6 weeks: Kari ambulates long community distances independently (progressing), stands at the kitchen counter 30-60 minutes with quilting (not met), walks around yard sales with balance control (met). PATIENT'S GOAL: Walk at quilt shows, yard sales without falling (met), stand at the kitchen counter for crafts (not met), get rid of brace and walk without LBP (progressing). Patient Compliance: Excellent Prognosis: Reasons for continuing therapy: S: Kari relates her L PSIS pain is reducing. We've discussed more walking and less sitting at home. Kari is demonstrating short term memory loss. MAISHA improved to 13%. Posture: Flattened lumbar curve, iliac crests even. ROM: Lumbar spine AROM WNL for fusions. Strength: Core strength 3-/5, with Kari using pelvic tilt instead of neutral spine with her exercises unless cued. Gait: 10 minutes slow cadance without lumbar brace, wearing knee braces. Walking time is knee limited. Special Tests: Negative SLR, B, hamstring flexibility 70 deg. B. Mobility: Sit to stand from low chair in one attempt, no UE use. A/P: Kari Humphries is improving PSIS pain. She could benefit from continued PT to work core strength, especially for L5/S1 level to reduce PSIS pain. If you agree, we'll continue at 2-3/week to goals set. Thank you. KALYAN
--- NOTE | 2018-09-01 13:39 | PT PLAN OF CARE ---
Physician: Dr. Srinivas Ventura Patient is being seen: 3x/week Therapist: Jaylyn Ro PT Medical Diagnosis: L3-5 fusion, L PSIS pain Treatment Diagnosis: Same, L2-S1 laminectomies Date of Onset: 05/12/18 Date of Initial Evaluation: 06/25/18 Date patient was last seen: 09/01/18 Number of treatments: 30 Number of cancellations/No shows: 0 INTERVENTIONS: Manual Therapy, E-stim, Heat, Therapeutic Exercise including Spinal Stabilization Exercise , Gait Training GOALS: 4 weeks: Kari ambulates 15 to 20 minutes with O2 in the 90's, cane. (met) 6 weeks: Kari ambulates long community distances independently (met), stands at the kitchen counter 30-60 minutes with quilting (not met, she isn't quilting), walks around yard sales with balance control (met). PATIENT'S GOAL: Walk at quilt shows, yard sales without falling (met), stand at the kitchen counter for crafts (not met), get rid of brace (met) and walk without LBP (partially met, pain 1/10). Patient Compliance: Excellent Prognosis: Reasons for discontinuing therapy: S: Kari relates she's returned to prior level of function except standing at the kitchen counter to quilt (which she doesn't want to do yet). Oswestry Disability Index 11%. Kari relates she doesn't lift heavy weight but can fruit picker dog bowls from the floor with L-S ache 1/10. She's DC'd her brace. She only has mild L5/S1 pain and denies L PSIS pain since your injection. Posture: Flattened lumbar curve, iliac crests even. ROM: Minimal lumbar flexion, extension, while side bend B WNL for fusions.. Strength: Core strength 4+/5, LE's 5- to 5/5 including calves. Special Tests: Negative SLR, B, hamstring flexibility 70 deg. B. Non-tender L PSIS. Mobility: Sit to stand from low chair in one attempt, no UE use. Gait: Gait speed fast 2.9 feet/seconds, endurance 15 min., 2500 feet. A/P: Kari Humphries Did well with her PSIS injection to resolve pain except for mild facet pain at L5/S1. She is now independent with our self-pay gym program. If you agree, I'll DC PT to this program. Thank you. KALYAN
== END 2018-09-01 18:00 | disposition home or self-care (01) ==
LOC: PT 08:15
PROVIDERS: ATTEND Orthopaedic Surgery
DX: M54.5 Low back pain (principal); Z98.1 Arthrodesis status; R26.89 Other abnormalities of gait and mobility
CPT/HCPCS: 97010; 97110; 97116; 97140; 97162; G0283

== ENCOUNTER → 2018-10-14 | Outpatient (CLI) | payer MEDICARE, BC ==
[2018-05-15 09:26] VITALS: BMI 24.6
== END ==
LOC: AMB 18:22
PROVIDERS: ATTEND Nurse Practitioner
DX: R55 Syncope and collapse (principal); R23.0 Cyanosis; R06.89 Other abnormalities of breathing; R10.9 Unspecified abdominal pain
CPT/HCPCS: A0425; A0433

== ENCOUNTER 2018-11-17 09:00 | Outpatient (RCR) | payer MEDICARE, BC ==
[2018-05-15 09:26] VITALS: BMI 24.6
--- NOTE | 2018-09-09 12:16 | PT INITIAL EVALUATION ---
MEDICAL DIAGNOSIS: LBP post-fusion TREATMENT DIAGNOSIS: Same DATE OF ONSET: 09/05/18 SUBJECTIVE: Kari Humphries returns to PT for a flare of LBP. She was discharged from PT for L3-5 fusion and L2-S1 laminectomies, surgery 05/12/18. She has a gym program she does here but relates when she's home she just sits. Oswestry Disability Index 20%. At discharge on 09/01/18, MAISHA was 10%. Kari finds standing more painful and she isn't walking as much. She has B knee OA and finds 15 minutes about as far as her knees can take. Pain location is Lower thoracic to L-S junction and described as ache. Pain scale is 1 on a ten point pain scale. Pain is worse with standing and better with sitting. REHAB PROBLEM LIST: Increased Pain Decreased ROM Decreased Strength Decreased Function Decreased Gait PREVIOUS MEDICAL HISTORY: L3-5 fusions with L2-S1 laminectomies 05/12/18, cervical fusion with hardware removal, upper thoracic fusion, neuropathy, 2010 meniscus repair, sleep apnea, congenital kidney disease, L wrist tendinitis. OCCUPATION: Retired, live with her in a home with 1-2 steps, not sewing, doing community ambulation, quilting. OBJECTIVE: Posture: Elevated R iliac crest, midline lumbar spine, increased thoracic kyphosis. Quad, psoas and IT band tightness. ROM: AROM lumbar spine WNL for fusion, extension L5/S1. Thoracic extension AROM 50% for fusion. Strength: LE's 5-/5. Palpation: Tight lower thoracic and lumbar soft tissue. Special Tests: Negative SLR, B. Quad flexibility L 95 deg., L 105 degrees. Mobility: Independent bed mobility, sit/stand without UE use, one attempt. Gait: Kari turns with discordant steps, ambulates at 2.0 ft/sec. (was 2.9 ft/sec). Balance: SLS 3 seconds. ASSESSMENT: Kari Humphries has altered her pelvic posture, increased LBP with too much sedentary lifestyle. We did thoracic extension, MET's for flexibility and modalities with less pain. I feel Kari needs more activity and would like to do more exercise. Short Term Goals 4 weeks: Kari denies pain with ambulating 1/4 mile or riding bike 30 minutes. 6 weeks: Kari stands 45 minutes, walks or bikes 30 minutes without LBP. Patient's Goals No LBP. PLAN: Patient to be seen for Manual Therapy, Strengthening/condition, Range of Motion, Spinal Stabilization, Stretching, Neuromuscular Re-ed, Gait Trg/Balance Trg, Home Exercise Program 2-3x/week for 6 Weeks Thank you for this referral. If you have any questions, comments, or concerns about this report or plan, please contact me at . [facility]
--- NOTE | 2018-10-03 13:35 | PT PLAN OF CARE ---
Physician: Dr. Srinivas Ventura Patient is being seen: 3x/week Therapist: Jaylyn Ro, PT Medical Diagnosis: LBP post-fusion Treatment Diagnosis: Same Date of Onset: 09/05/18 Date of Initial Evaluation: 09/09/18 Date patient was last seen: 10/03/18 Number of treatments: 10 Number of cancellations/No shows: 0 INTERVENTIONS:, Manual Therapy, Spinal Stabilization, Range of Motion/Stretching, Strengthening/condition, E-stim, Hot pack, Home Exercise Program GOALS: 4 weeks: Kari denies pain with ambulating 1/4 mile (progressing) or riding bike 30 minutes (not done-walks). 6 weeks: Kari stands 45 minutes (progressing), walks or bikes 30 minutes without LBP (progressing). PATIENT'S GOAL: No LBP. (progressing) Patient Compliance: Excellent Prognosis: Excellent Reasons for continuing therapy: S: Kari relates she was able to stand, sit and walk about the [employer] for two 3 hour shifts one day with minimal LBP. MAISHA 13%. Walking increases LBP from 2/10 to 4/10, reduced with back extension. Posture: Even iliac crests, improving flexibility. ROM: AROM lumbar spine WNL for fusion, extension L5/S1. Thoracic extension AROM 75% for fusion. Strength: LE's 5-/5. Mobility: Independent bed mobility, sit/stand without UE use, one attempt. A/P: Kari Humphries is improving strength, endurance, reducing pain. She gets full LBP relief with e-stim and heat. If you agree, we'll continue 3x/week another 1- 2 weeks. Thank you. KALYAN
--- NOTE | 2018-11-17 17:54 | PT PLAN OF CARE ---
Physician: Dr. Srinivas Ventura Patient is being seen: 2x/week Therapist: Jaylyn Ro, PT Medical Diagnosis: LBP post-fusion Treatment Diagnosis: Same Date of Onset: 09/05/18 Date of Initial Evaluation: 09/09/18 Date patient was last seen: 11/17/18 Number of treatments: 16 Number of cancellations/No shows: 0 INTERVENTIONS: Strengthening/condition, Range of Motion/Stretching, Spinal Stabilization, E-stim, Heat, HEP GOALS: 4 weeks: Kari denies pain with ambulating 1/4 mile (met) or riding bike 30 minutes (not done-walks). 6 weeks: Kari stands 45 minutes (partially met - 30 minutes), walks or bikes 30 minutes without LBP (not met - knees OA). PATIENT'S GOAL: No LBP. (partially met, 1-210) Patient Compliance: Excellent Prognosis: Excellent Reasons for discontinuing therapy: S: Kari rates LBP 0-1/10, better with her home TENS unit. Oswestry Disability Index 9% impairment. Posture: Midline lumbar spine, increased thoracic kyphosis. ROM: AROM lumbar spine WNL for fusion, extension L5/S1. Strength: LE's 5-/5. Core strength 4/5. Gait: Kari walks 10 minutes, limited by B knee OA, not lumbar pain or weakness. Special Tests: Negative SLR, B. Quad flexibility 110 degrees B. Mobility: Independent bed mobility, sit/stand without UE use, one attempt. A/P: Kari Humphries has progressed to minimal LBP with prior level of function. She will return to our self-pay gym program and has a handout to follow. I'll DC PT to this program and HEP. Thank you. KALYAN
== END 2018-11-17 18:00 | disposition home or self-care (01) ==
LOC: PT 09:00
PROVIDERS: ATTEND Orthopaedic Surgery
DX: Z48.811 Encounter for surgical aftercare following surgery on the nervous system (principal); M54.5 Low back pain; Z98.1 Arthrodesis status
CPT/HCPCS: 97010; 97032; 97110; 97162; G0283

== ENCOUNTER → 2018-12-24 | Outpatient (CLI) | payer MEDICARE, BC ==
[2018-05-15 09:26] VITALS: BMI 24.6
[~2018-12-24] MED LIST changes: +DICL100G39 TOP
[2018-12-24 09:13] LABS: PLATELET COUNT, AUTOMATED 282 K/uL (150-450)
== END ==
LOC: LAB 09:01
PROVIDERS: ATTEND Emergency Medicine
DX: I12.9 Hypertensive chronic kidney disease with stage 1 through stage 4 chronic kidney disease, or unspecified chronic kidney disease (principal); N18.3 Chronic kidney disease, stage 3 (moderate); E03.9 Hypothyroidism, unspecified; E78.00 Pure hypercholesterolemia, unspecified
CPT/HCPCS: 36415; 82040; 82247; 82310; 82374; 82435; 82465; 82565; 82947; 83718; 84075; 84132; 84155; 84295; 84443; 84450; 84460; 84478; 84520; 85025

== ENCOUNTER → 2019-01-06 | Outpatient (CLI) | payer MEDICARE, BC ==
[2018-05-15 09:26] VITALS: BMI 24.6
--- NOTE | 2019-01-06 16:56 | RADIOLOGY IMAGING REPORT ---
FACILITY: [facility] PATIENT NAME: Kari Humphries : 1940 MR: [id number] V: [id number] EXAM DATE: ORDERING PHYSICIAN: JOEY HERRERA TECHNOLOGIST: Location: [facility] [place] Patient: Kari Humphries : 1940 Visit/Account:[id number] Date of Sevice: 01/06/2019 CAROTID HISTORY: Memory loss COMPARISON: FINDINGS: Grayscale, duplex and color Doppler interrogation of the extracranial carotid and vertebral arteries was performed bilateral. On the right, peak systolic velocities within the common and internal carotid arteries are 98.8 and 1 28 cm/sec respectively. There is a tiny plaque right carotid bulb. Antegrade flow within the common , internal and external carotid arteries as well as vertebral artery. ICA/CCA ratio 1.06. On the left, peak systolic velocities within the common and internal carotid arteries are 86 and 86 c m/sec respectively. No significant plaque identified. Antegrade flow within the common, internal an d external carotid arteries as well as vertebral artery. ICA/CCA ratio 0.8. IMPRESSION: There is a tiny hard plaque right carotid bulb The peak systolic velocity in the distal right ICA is minimally elevated at 128 cm/s however no hemod ynamically significant narrowing was identified Velocity criteria are extrapolated from diameter data as defined by the Society of Radiologists in [facility] Consensus Conference Radiology 2003; 229;340-346 Report Dictated By: Amy Reyna MD at 01/06/2019 4:43 PM Report E-Signed By: Amy Reyna MD at 01/06/2019 4:51 PM WSN:[id number]
== END ==
LOC: US 12-26 02:43
PROVIDERS: ATTEND Emergency Medicine
DX: I65.21 Occlusion and stenosis of right carotid artery (principal)
CPT/HCPCS: 93880

== ENCOUNTER → 2019-01-16 | Outpatient (CLI) | payer MEDICARE, BC ==
[2018-05-15 09:26] VITALS: BMI 24.6
--- NOTE | 2019-01-16 12:24 | RADIOLOGY IMAGING REPORT ---
FACILITY: [facility] PATIENT NAME: ORAL PARMAR : [id number] MR: [id number] V: [id number] EXAM DATE: [id number] ORDERING PHYSICIAN: JOEY HERRERA TECHNOLOGIST: Jeanne Urbina PROCEDURE:BILATERAL DIGITAL SCREENING MAMMOGRAM WITH CAD ASSISTED INTERPRETATION & 3D TOMOSYNTHESIS COMPARISON:Prior mammograms 01/02/18, prior to 02/11/2012. INDICATIONS:SCREENING FINDINGS: Breast parenchyma is heterogeneously dense. Adjacent circumscribed masses in the central Right breast at middle depth with the largest measuring 11mm. Benign appearing calcifications in both breasts. No significant new mammographic findings on the Left. DIAGNOSTIC CATEGORY 0--INCOMPLETE: NEED ADDITIONAL IMAGING EVALUATION. RECOMMENDATIONS: ULTRASOUND: OF THE RIGHT BREAST WITH ATTENTION TO THE CENTRAL RIGHT BREAST MASSES. IMPRESSION: BIRADS 0: Incomplete. Dictated by: Buzz Patel on 01/16/2019 at 11:31 Transcribed by: MIRANDA on 01/16/2019 at 11:40 Approved by: Buzz Patel on 01/16/2019 at 12:23 [facility]
== END ==
LOC: MAMO 01:55
PROVIDERS: ATTEND Emergency Medicine
DX: Z12.31 Encounter for screening mammogram for malignant neoplasm of breast (principal); R92.2 Inconclusive mammogram
CPT/HCPCS: 77063; 77067

== ENCOUNTER → 2019-01-30 | Outpatient (CLI) | payer MEDICARE, BC ==
[2018-05-15 09:26] VITALS: BMI 24.6
[~2019-01-30] MED LIST changes: -DIPH0.5D12 IM; +DIPH0.5S2 IM; +HYDR30CR10 TP; +TRIA15CR40 TP
--- NOTE | 2019-02-03 10:09 | RADIOLOGY IMAGING REPORT ---
FACILITY: [facility] - [place], [place] PATIENT NAME: ORAL PARMAR : [id number] MR: [id number] V: [id number] EXAM DATE: ORDERING PHYSICIAN: JOEY HERRERA TECHNOLOGIST: Arpita Jarquin RDMS(ABD,OBGYN,BR),RVT PROCEDURE:US RIGHT BREAST COMPARISON:Prior mammogram 01/16/19. INDICATIONS:abnormal mammogram FINDINGS: There are 2 contiguous cysts in the 9 o'clock position of the Right breast 1 measuring 1.5cm from the nipple and 1 1cm from the nipple. These measure 5mm and 8.8mm respectively. This corresponds to the mammographic findings. DIAGNOSTIC CATEGORY 2--BENIGN FINDING. RECOMMENDATIONS: ROUTINE MAMMOGRAM AND CLINICAL EVALUATION. IMPRESSION: BIRADS 2: benign finding. There are 2 contiguous cysts in the 9 o'clock position of the Right breast 1cm and 1.5cm from the nipple. Dictated by: Amy Reyna M.D. on 01/30/2019 at 14:30 Transcribed by: MIRANDA on 02/02/2019 at 15:16 Approved by: Amy Reyna M.D. on 02/03/2019 at 10:07 [facility]
== END ==
LOC: US 00:37
PROVIDERS: ATTEND Emergency Medicine
DX: N60.11 Diffuse cystic mastopathy of right breast (principal)

== ENCOUNTER → 2019-03-04 | Outpatient (CLI) | payer MEDICARE, BC ==
[2018-05-15 09:26] VITALS: BMI 24.6
[~2019-03-04] MED LIST changes: +BENZ100C4 PO
--- NOTE | 2019-03-04 15:20 | RADIOLOGY IMAGING REPORT ---
FACILITY: [facility] PATIENT NAME: Kari Humphries : 1940 MR: [id number] V: [id number] EXAM DATE: ORDERING PHYSICIAN: JOEY HERRERA TECHNOLOGIST: Location: [facility] [place] Patient: Kari Humphries : 1940 Visit/Account:[id number] Date of Sevice: 03/04/2019 Study: Frontal and lateral views of the chest Indication: Cough Comparison study: October 14, 2018 Findings: PA and lateral views of the chest demonstrate no evidence of acute infiltrate. There is no evidence of pleural effusion. There is no evidence of pneumothorax. The mediastinal, cardiac, and diaphragmatic contours are unremarkable. The visualized bony structures are unremarkable. The patient is status post cervical spine surgery. IMPRESSION: Unremarkable chest. Report Dictated By: Kelby Lucas at 03/04/2019 3:14 PM Report E-Signed By: Kelby Lucas at 03/04/2019 3:14 PM WSN:[id number]
== END ==
LOC: RAD 14:39
PROVIDERS: ATTEND Emergency Medicine
DX: R05 Cough (principal)
CPT/HCPCS: 71046

== ENCOUNTER → 2019-04-03 | Outpatient (CLI) | payer MEDICARE, BC ==
[2018-05-15 09:26] VITALS: BMI 24.6
[~2019-04-03] MED LIST changes: +LEV125 PO; -RANI-366 PO; +RANI-54 PO
[2019-04-03 11:18] LABS: PLATELET COUNT, AUTOMATED 281 K/uL (150-450)
== END ==
LOC: LAB 10:49
PROVIDERS: ATTEND Emergency Medicine
DX: R41.3 Other amnesia (principal)
CPT/HCPCS: 36415; 81001; 82040; 82247; 82310; 82374; 82435; 82565; 82607; 82947; 84075; 84132; 84155; 84295; 84443; 84450; 84460; 84520; 85025

== ENCOUNTER → 2019-04-09 | Outpatient (CLI) | payer MEDICARE, BC ==
[2018-05-15 09:26] VITALS: BMI 24.6
[~2019-04-09] MED LIST changes: +DONE10TA89 PO; +DONE5TAB74 PO; +GADOBENATE 529MG/1ML 15ML VIAL IVP ONE
--- NOTE | 2019-04-09 14:40 | RADIOLOGY IMAGING REPORT ---
FACILITY: [facility] [place] PATIENT NAME: Kari Humphries : 1940 MR: [id number] V: [id number] EXAM DATE: ORDERING PHYSICIAN: JOEY HERRERA TECHNOLOGIST: Location: [facility] Patient: Kari Humphries : 1940 Visit/Account:[id number] Date of Sevice: 04/09/2019 Examination: MR brain without and with contrast History: Memory loss Comparison: Head CT 10/14/2018 Technique: Multiplane MR imaging was performed through the brain without and with contrast. 15 cc IV multihance was administered. Findings: Diffusion: None Ventricles: Unchanged ex vacuo dilatation. Midline shift: None Extraxial fluid: None Midline craniocervical structures: Degenerative pannus posterior to the dens. Parenchyma: Mild unchanged parenchymal atrophy. Patchy white matter hypoattenuation has not definitiv be changed allowing for technique differences. Enhancement: No pathologic enhancement Vascular flow voids: Normal Orbits and paranasal sinuses: Right cataract postsurgical change. Other: No significant additional finding. Impression: 1. No acute intracranial abnormality. 2. Mild unchanged parenchymal atrophy with associated unchanged mild ex vacuo ventricular dilatation. 3. Moderate unchanged chronic small vessel ischemic change. 4. Otherwise normal brain MR without and with contrast. Report Dictated By: Khurram Butts MD at 04/09/2019 2:31 PM Report E-Signed By: Khurram Butts MD at 04/09/2019 2:35 PM WSN:[email or web address]
== END ==
LOC: MRI 00:49
PROVIDERS: ATTEND Emergency Medicine
DX: R41.3 Other amnesia (principal)
CPT/HCPCS: 70553; A9577

== ENCOUNTER → 2019-06-02 | Outpatient (CLI) | payer MEDICARE, BC ==
[2018-05-15 09:26] VITALS: BMI 24.6
[~2019-06-02] MED LIST changes: -GADOBENATE 529MG/1ML 15ML VIAL IVP ONE; +LEV112 PO
== END ==
LOC: LAB 10:49
PROVIDERS: ATTEND Emergency Medicine
DX: E03.9 Hypothyroidism, unspecified (principal)
CPT/HCPCS: 36415; 84443

== ENCOUNTER 2019-06-10 08:15 | Outpatient (RCR) | payer MEDICARE, BC ==
[2018-05-15 09:26] VITALS: BMI 24.6
--- NOTE | 2019-05-13 13:37 | PT INITIAL EVALUATION ---
MEDICAL DIAGNOSIS: LBP post L3-S1 fusion TREATMENT DIAGNOSIS: Same DATE OF ONSET: 04/15/19 SUBJECTIVE: Kari Humphries returns to PT for her LBP that flared at the end of March, when she gardened, pulling weeds. she was stretched out on the ground on her side to pull weeds, per her report. She's had L-S PT and injections before and was discharged to our independent self-pay gym program for walking and back/hip exercises. Kari has cognitive decline. Pain location is L/R mid-lumbar region and described as tightness, ache. Pain scale is 4 on a ten point pain scale. Pain is worse with walking, standing and better with sitting. MAISHA 30% impairment. REHAB PROBLEM LIST: Increased Pain Impaired Cognition Decreased ROM Impaired Bed Mobility Decreased Strength Decreased Endurance Decreased Gait PREVIOUS MEDICAL HISTORY: L3-5 fusion and L2-S1 laminectomies, surgery 05/12/18, cervical fusion with hardware removal, upper thoracic fusion, neuropathy, 2010 meniscus repair, B knee OA, sleep apnea, congenital kidney disease, L wrist tendinitis. OCCUPATION: Retired, live with her in a home with 1-2 steps, not climbing stairs, standing long, also walking a block is a long distance, per Kari. OBJECTIVE: Posture: Midline lumbar spine, even iliac crests, forward head posture ROM: AROM lumbar spine 25% flexion, extension (fusions). B hip PROM IR 10 deg., ER 30 deg., at 90 deg. hip flexion. Shoulders AROM abd. 90 deg. B, tight shoulders. Strength: Hip abductors 4+/5. Palpation: Painful in the quadratus lumborum, posterior hip muscles Special Tests: SLR B 70 deg., almost full hamstrings flexibility B, tight IT bands. Mobility: Independent, LBP with bed mobility, reduced hip extension with bridging. Gait: Stiff-legged gait, reduced arm swing. ASSESSMENT: Kari Humphries presents with tightness, soreness in the lumbopelvic region affecting lumbar pain with movement. Short Term Goals 1 month: Kari walks 2 blocks with mid-lumbar pain 10/30. 2 months: Kari gardens 20 min., walks 3 blocks without LBP. Patient's Goals Garden and walk more. PLAN: Patient to be seen for Strengthening/condition Ice/Heat Range of Motion Spinal Stabilization Stretching Electrical Stim Posture/Body mechanics Gait Trg/Balance Trg Home Exercise Program 2x/Week for 2 Months Thank you for this referral. If you have any questions, comments, or concerns about this report or plan, please contact me at . [facility]
--- NOTE | 2019-06-10 10:45 | PT PLAN OF CARE ---
Physician: Dr. Srinivas Ventura Patient is being seen: 2x/week Therapist: Jaylyn Ro, PT Medical Diagnosis: LBP post L3-S1 fusion Treatment Diagnosis: Same Date of Onset: 04/15/19 Date of Initial Evaluation: 05/13/19 Date patient was last seen: 06/10/19 Number of treatments: 8 Number of cancellations/No shows: 2 INTERVENTIONS: Strengthening/condition, Ice/Heat, ROM, Spinal Stabilization, Stretching, Electrical Stim, HEP GOALS: 1 month: Kari walks 2 blocks with mid-lumbar pain 10/30. met 2 months: Kari gardens 20 min., walks 3 blocks without LBP. met PATIENT'S GOAL: Garden and walk more. both met Patient Compliance: Excellent Prognosis: Good Reasons for discontinuing therapy: S: Kari maxwell she now can stand, 30 minutes, finds gardening for long bothers her back but can do short times. MAISHA 33%. Her helps her rosalinda compression socks and knee braces. Posture: Midline lumbar spine, even iliac crests, forward head posture ROM: AROM lumbar spine 25% flexion, extension (fusions). Strength: Hip abductors 5-/5. Core strength 4/5. Palpation: Tender in the posterior hip muscle tendons at the iliac crest. Special Tests: IT band flexibility is improved, SLR 70 deg. B. Mobility: Independent, no LBP with bed mobility, moderate hip extension with bridging. A/P: Kari Humphries has improved flexibility, strength, endurance to tolerate more ADL's. She's learned a gym program here and will continue with it. If she needs another injection, Kari relates she will call your office. I'll DC PT to gym and home exercise program. Thank you. KALYAN
== END 2019-06-10 14:14 | disposition home or self-care (01) ==
LOC: PT 08:15
PROVIDERS: ATTEND Orthopaedic Surgery
DX: M54.5 Low back pain (principal); Z98.1 Arthrodesis status
CPT/HCPCS: 97010; 97110; 97162; G0283